=== PATIENT | female | born 1955 | race Two or more races ===

== ENCOUNTER 2016-11-16 10:33 | Inpatient (IN) | payer MEDICAID ==
[~2016-11-16] VITALS: Ht 157.5 cm; Wt 98.2 kg
[~2016-11-16 10:33] MED LIST: AMLO2.5T PO; ASP81EC PO; ATOR20TA50 PO; FURO20TA3 PO; HYDR-2595 PO; INSLANTI SC; INSLISPI SC; INSUINJ49 SC; LEVO50TA7 PO; LOS50T PO; MET50T GT; WARF5TAB PO; [UNRECOGNIZED DRUG - CODE] PO
[2016-11-16 11:17] LABS: Basophils # (auto) 0 uL; Basophils % (auto) 0.4 % (0.0-2.0); DEFINITIVE VIEW TRANSMISSION; Eosinophils # (auto) 0.1 uL; Eosinophils % (auto) 1.3 % (0.0-7.0); Hematocrit 41.5 % (36.0-46.0); Hemoglobin 12.9 g/dL (12.2-16.2); Lymphocytes # (auto) 1.8 uL; Mean Corpuscular Hemoglobin 25.4 pg (28.0-32.0); Mean Corpuscular Hgb Conc. 31.1 g/dL (32.0-36.0); Mean Corpuscular Volume 81.8 fL (80.0-100.0); Mean Platelet Volume 7.8 fL (7.4-10.4); Monocytes # (auto) 0.4 uL; Monocytes % (auto) 5.2 % (0.0-12.0); Neutrophils # (auto) 5.7 uL; Neutrophils % (auto) 71.1 % (37.0-80.0); Platelet Count (auto) 359 10^3/uL (140-450); Red Cell Distribution Width 18.2 % (11.6-16.0)
[2016-11-16 11:45] LABS: Albumin 4.2 g/dL (3.4-5.0); BUN/Creatinine Ratio 12.8; Bilirubin, Total 0.9 mg/dL (0.2-1.0); Calcium 9.3 mg/dL (8.5-10.1); Total Protein 7.8 g/dL (6.4-8.2)
[2016-11-16] MEDS ORDERED: ASPirin 81 mg TAB PO ONE (12:30)
[2016-11-16 13:09] LABS: Partial Thromboplastin Time 44.4 sec (22.64-33.71)
[2016-11-16 13:13] LABS: INR 3.56 (0.9-1.15); Prothrombin Time 36.7 sec (9.37-12.3)
[2016-11-16 13:19] LABS: B-Type Natriuretic Peptide 5.12 pg/mL (0-100)
[2016-11-16 13:22] LABS: Temperature: 22.7 C (20.0-25.0)
[2016-11-16] MEDS ORDERED: IOHEXOL 350 MG/ML 100ML IJ ONE (14:42)
[2016-11-16] MEDS: SODIUM CHLORIDE 0.9% 1,000 ML IV SCH (14:44)
[2016-11-16] MEDS ORDERED: LORazepam 0.5 MG TAB PO PRN (14:45)
[2016-11-16] MEDS ORDERED: MORPHINE SULF INJ 2 MG/ML SYRINGE 1ML IV PRN ×2 (14:45)
[2016-11-16] MEDS ORDERED: NITROGLYCERIN 0.4 MG SL TAB SL PRN (14:45)
[2016-11-16] MEDS ORDERED: LACTULOSE 20Gm/30ML SOLN PO PRN (14:45)
[2016-11-16] MEDS ORDERED: ACETAMINOPHEN 500 MG TAB PO PRN (14:45)
[2016-11-16] MEDS ORDERED: MORPHINE SULFATE 4 MG/ML SYRG IV PRN (14:45)
[2016-11-16] MEDS ORDERED: DEXTROSE (50%) 50ML SYRG IV PRN (14:45)
[2016-11-16] MEDS ORDERED: PROMETHAZINE HCL 25 MG/ML 1ML IV PRN (14:45)
[2016-11-16] MEDS ORDERED: TEMAZEPAM 15 MG CAP PO PRN (14:45)
[2016-11-16] MEDS: INSULIN DETEMIR(LEVEMIR) 1unit/0.01ml Soln (100units/ml) SC SCH (15:23)
[2016-11-16] MEDS: amLODIPine BESYLATE 5 MG TAB PO SCH ×2 (16:00→20:14)
[2016-11-16] MEDS: LOSARTAN POTASSIUM 50 MG TAB PO SCH ×2 (16:01→20:13)
[2016-11-16] MEDS: FUROSEMIDE 20 MG TAB PO SCH (16:01)
[2016-11-16] MEDS: InsuLIN REG 1unit/0.01ml Soln (100units/ml) SC SCH ×2 (17:00→21:32)
[2016-11-16 17:27] VITALS: BP 159/88
[2016-11-16] MEDS: ACCU-CHEK COMFORT CURVE STRIP VI SCH ×2 (17:28→21:33)
[2016-11-16] MEDS: METOPROLOL TARTRATE 50 MG TAB GT SCH ×2 (17:46→20:12)
[2016-11-16] MEDS ORDERED: NITROGLYCERIN 0.2MG/HR TOPICAL PATCH TD SCH (18:00)
[2016-11-16 21:56] VITALS: BP 112/66
[2016-11-16] MEDS ORDERED: ATORVASTATIN 20 MG TAB PO SCH (22:00)
[2016-11-17 01:07] LABS: Urine RBC None Seen /hpf (0 - 4)
[2016-11-17 01:27] LABS: Urine Bilirubin Negative (Negative); Urine Blood Negative /uL (Negative); Urine Color Yellow (Yellow); Urine Glucose Normal (Normal); Urine Ketone Negative (Negative); Urine Nitrite Negative (Negative); Urine Squamous Epithelial Cell FEW /hpf (<5); Urine Urobilinogen Normal (Negative)
[2016-11-17] MEDS: SODIUM CHLORIDE 0.9% 1,000 ML IV SCH (03:58)
[2016-11-17 05:00] VITALS: BP 126/77
[2016-11-17 06:22] LABS: Basophils # (auto) 0 uL; Basophils % (auto) 0.6 % (0.0-2.0); DEFINITIVE VIEW TRANSMISSION; Eosinophils # (auto) 0.2 uL; Eosinophils % (auto) 2.7 % (0.0-7.0); Hematocrit 40.2 % (36.0-46.0); Hemoglobin 12.5 g/dL (12.2-16.2); Lymphocytes # (auto) 2.4 uL; Lymphocytes % (auto) 34.1 % (10.0-50.0); Mean Corpuscular Hemoglobin 25.6 pg (28.0-32.0); Mean Corpuscular Volume 82.5 fL (80.0-100.0); Mean Platelet Volume 8.1 fL (7.4-10.4); Monocytes # (auto) 0.5 uL; Monocytes % (auto) 6.3 % (0.0-12.0); Neutrophils % (auto) 56.3 % (37.0-80.0); Platelet Count (auto) 330 10^3/uL (140-450); Red Cell Distribution Width 18.1 % (11.6-16.0); White Blood Cell 7.1 10^3/uL (4.4-10.8)
[2016-11-17] MEDS: ACCU-CHEK COMFORT CURVE STRIP VI SCH ×2 (06:26→11:54)
[2016-11-17] MEDS: InsuLIN REG 1unit/0.01ml Soln (100units/ml) SC SCH ×2 (06:26→11:30)
[2016-11-17 06:33] LABS: Partial Thromboplastin Time 43.7 sec (22.64-33.71)
[2016-11-17 06:37] LABS: INR 3.04 (0.9-1.15); Prothrombin Time 31.3 sec (9.37-12.3)
[2016-11-17 06:47] LABS: Albumin 3.9 g/dL (3.4-5.0); BUN/Creatinine Ratio 11.9; Bilirubin, Total 0.9 mg/dL (0.2-1.0); Calcium 8.8 mg/dL (8.5-10.1); Potassium 3.5 mmol/L (3.5-5.1); Total Protein 7.3 g/dL (6.4-8.2)
[2016-11-17] MEDS ORDERED: LEVOTHYROXINE SODIUM 50 MCG TAB PO SCH (07:00)
[2016-11-17 08:00] VITALS: BP 137/78
[2016-11-17 09:00] VITALS: BP 137/78
[2016-11-17] MEDS: INSULIN DETEMIR(LEVEMIR) 1unit/0.01ml Soln (100units/ml) SC SCH (10:00)
[2016-11-17] MEDS ORDERED: INSULIN GLARGINE SC SCH (10:00)
[2016-11-17] MEDS ORDERED: ASPirin 81 mg TAB PO SCH (10:00)
[2016-11-17] MEDS: LOSARTAN POTASSIUM 50 MG TAB PO SCH (10:49)
[2016-11-17] MEDS: METOPROLOL TARTRATE 50 MG TAB GT SCH (10:50)
[2016-11-17] MEDS: FUROSEMIDE 20 MG TAB PO SCH (10:50)
[2016-11-17] MEDS: amLODIPine BESYLATE 5 MG TAB PO SCH (10:51)
[2016-11-17 12:41] VITALS: BP 101/51
== END 2016-11-17 16:00 | disposition home or self-care (01) | DRG 198 ==
LOC: ER 10:33 → TELE 10:34 → TELE-CENTR 17:21
PROVIDERS: ADMIT Internal Medicine; ATTEND Internal Medicine
DX: R07.9 Chest pain, unspecified (principal); I25.2 Old myocardial infarction; I25.110 Atherosclerotic heart disease of native coronary artery with unstable angina pectoris; D68.9 Coagulation defect, unspecified; I50.9 Heart failure, unspecified; I11.0 Hypertensive heart disease with heart failure; E11.65 Type 2 diabetes mellitus with hyperglycemia; N13.30 Unspecified hydronephrosis; Z96.641 Presence of right artificial hip joint; E66.01 Morbid (severe) obesity due to excess calories; E03.9 Hypothyroidism, unspecified; E78.5 Hyperlipidemia, unspecified; I48.0 Paroxysmal atrial fibrillation; R50.9 Fever, unspecified; I48.2 Chronic atrial fibrillation; J45.909 Unspecified asthma, uncomplicated; Z79.01 Long term (current) use of anticoagulants; Z79.4 Long term (current) use of insulin; Z82.49 Family history of ischemic heart disease and other diseases of the circulatory system; Z83.3 Family history of diabetes mellitus; Z95.5 Presence of coronary angioplasty implant and graft; Z90.49 Acquired absence of other specified parts of digestive tract; Z98.51 Tubal ligation status; Z90.710 Acquired absence of both cervix and uterus; Z98.890 Other specified postprocedural states; Z90.89 Acquired absence of other organs; Z80.9 Family history of malignant neoplasm, unspecified; Z88.5 Allergy status to narcotic agent; Z88.8 Allergy status to other drugs, medicaments and biological substances; Z88.1 Allergy status to other antibiotic agents; Z91.040 Latex allergy status; Z83.2 Family history of diseases of the blood and blood-forming organs and certain disorders involving the immune mechanism; Z68.39 Body mass index [BMI] 39.0-39.9, adult
CPT/HCPCS: 36415; 71020; 71260; 74177; 80053; 80061; 81001; 82550; 82962; 83036; 83735; 83880; 84443; 84484; 85025; 85379; 85610; 85652; 85730; 86141; 87086; 93005; G0434; J1815

== ENCOUNTER 2019-04-08 11:58 | Emergency (ER) | payer OTHER, MEDICAID ==
[~2019-04-08] VITALS: Ht 167.6 cm; Wt 74.8 kg
[~2019-04-08 11:58] MED LIST changes: -AMLO2.5T PO; +AMLO2.5T7 PO; -ASP81EC PO; -HYDR-2595 PO; -INSUINJ49 SC; +[UNRECOGNIZED DRUG - CODE] PO; -[UNRECOGNIZED DRUG - CODE] PO
[2019-04-08 12:54] VITALS: BP 146/86
[2019-04-08] MEDS ORDERED: TETANUS-DIPTH-ACEL PERTUSSIS 0.5ML SYRG IM ONE (13:30)
[2019-04-08] MEDS ORDERED: ACETAMINOPHEN 500 MG TAB PO ONE (13:30)
== END 2019-04-08 13:49 | disposition home or self-care (01) ==
LOC: EDBD 11:58 → ER 12:10
DX: S70.12XA Contusion of left thigh, initial encounter (principal); I11.0 Hypertensive heart disease with heart failure; I50.9 Heart failure, unspecified; E11.9 Type 2 diabetes mellitus without complications; J45.909 Unspecified asthma, uncomplicated; I48.91 Unspecified atrial fibrillation; E78.5 Hyperlipidemia, unspecified; Z90.49 Acquired absence of other specified parts of digestive tract; Z98.51 Tubal ligation status; Z90.89 Acquired absence of other organs; Z91.040 Latex allergy status; Z98.61 Coronary angioplasty status; W54.0XXA Bitten by dog, initial encounter; Y93.89 Activity, other specified; Y99.8 Other external cause status; Y92.89 Other specified places as the place of occurrence of the external cause; Z88.1 Allergy status to other antibiotic agents; Z88.6 Allergy status to analgesic agent
CPT/HCPCS: 90471; 90715

== ENCOUNTER 2019-04-21 16:50 | Emergency (ER) | payer OTHER, MEDICAID ==
[~2019-04-21] VITALS: Ht 160 cm; Wt 77.1 kg
[2019-04-21 18:15] LABS: Basophils # (auto) 0 uL; Basophils % (auto) 0.7 % (0.0-2.0); Eosinophils # (auto) 0.2 uL; Eosinophils % (auto) 3.1 % (0.0-7.0); Hematocrit 38.5 % (36.0-46.0); Hemoglobin 12.5 g/dL (12.2-16.2); Lymphocytes # (auto) 2.2 uL; Lymphocytes % (auto) 31.2 % (10.0-50.0); Mean Corpuscular Hemoglobin 26.5 pg (28.0-32.0); Mean Corpuscular Hgb Conc. 32.4 g/dL (32.0-36.0); Mean Corpuscular Volume 81.6 fL (80.0-100.0); Monocytes # (auto) 0.4 uL; Monocytes % (auto) 6.3 % (0.0-12.0); Neutrophils # (auto) 4.1 uL; Neutrophils % (auto) 58.7 % (37.0-80.0); Platelet Count (auto) 425 10^3/uL (140-450); Red Blood Cells 4.72 10^6/uL (4.0-5.20); Red Cell Distribution Width 16.5 % (11.8-14.3); White Blood Cell 7.1 10^3/uL (4.4-10.8)
[2019-04-21 18:31] LABS: Albumin 3.9 g/dL (3.4-5.0); BUN/Creatinine Ratio 21.7; Calcium 8.8 mg/dL (8.5-10.1); Potassium 3.5 mmol/L (3.5-5.1)
[2019-04-21 18:35] LABS: Bilirubin, Total 0.5 mg/dL (0.2-1.0); Total Protein 7.4 g/dL (6.4-8.2)
[2019-04-21 18:56] LABS: INR 1.53 (0.9-1.15); Partial Thromboplastin Time 36.1 sec (23.64-32.05)
[2019-04-21] MEDS ORDERED: LIDOCAINE 2%HCL (LOCAL ANESTH.) INJ 10ml MDV IJ ONE (21:30)
[2019-04-21] MEDS ORDERED: CLINDAMYCIN 900MG IV 50 ML IV ONE (21:45)
[2019-04-21] MEDS ORDERED: LIDOCAINE 2%HCL (LOCAL ANESTH.) INJ 20ML MDV ONE (23:34)
[2019-04-22 00:30] VITALS: BP 143/75
[2019-04-22] MEDS ORDERED: SULFAMETHOX W/TRIMETH(800/160MG) DS TAB PO ONE (00:30)
[2019-04-22] MEDS ORDERED: HYDROcodone-ACET 10/325MG TAB PO ONE (00:30)
== END 2019-04-22 02:01 | disposition home or self-care (01) ==
LOC: ER 16:56
DX: S71.152A Open bite, left thigh, initial encounter (principal); L02.416 Cutaneous abscess of left lower limb; L08.9 Local infection of the skin and subcutaneous tissue, unspecified; I11.0 Hypertensive heart disease with heart failure; I50.9 Heart failure, unspecified; E11.9 Type 2 diabetes mellitus without complications; J45.909 Unspecified asthma, uncomplicated; Z86.39 Personal history of other endocrine, nutritional and metabolic disease; Z90.49 Acquired absence of other specified parts of digestive tract; Z90.710 Acquired absence of both cervix and uterus; Z98.51 Tubal ligation status; Z98.61 Coronary angioplasty status; Z88.2 Allergy status to sulfonamides; Z91.040 Latex allergy status
CPT/HCPCS: 10060; 36415; 73552; 80053; 83605; 85025; 85610; 85730; 87040; 87077; 87186; 87205; 99284; J2001; J3490

== ENCOUNTER 2021-05-23 12:56 | Inpatient (IN) | payer MEDICAID, OTHER ==
[~2021-05-23] VITALS: Ht 160 cm; Wt 77.1 kg
[~2021-05-23 12:56] MED LIST changes: +AMLO-483 PO; -AMLO2.5T7 PO
[2021-05-23 13:32] LABS: Basophils # (auto) 0.1 10 ^3/uL (0-0.2); Basophils % (auto) 0.9 % (0.0-2.0); Eosinophils # (auto) 0.2 10 ^3/uL (0-0.8); Eosinophils % (auto) 2.8 % (0.0-7.0); Hematocrit 38.9 % (36.0-46.0); Hemoglobin 12.9 g/dL (12.2-16.2); Lymphocytes # (auto) 2.8 10 ^3/uL (0.4-5.4); Lymphocytes % (auto) 36.1 % (10.0-50.0); Mean Corpuscular Hemoglobin 27.9 pg (28.0-32.0); Mean Corpuscular Hgb Conc. 33.2 g/dL (32.0-36.0); Mean Corpuscular Volume 84.2 fL (80.0-100.0); Monocytes # (auto) 0.4 10 ^3/uL (0-1.3); Monocytes % (auto) 5.6 % (0.0-12.0); Neutrophils # (auto) 4.2 10 ^3/uL (1.6-8.6); Neutrophils % (auto) 54.6 % (37.0-80.0); Red Blood Cells 4.62 10^6/uL (4.0-5.20); Red Cell Distribution Width 15.7 % (11.8-14.3); White Blood Cell 7.7 10^3/uL (4.4-10.8)
[2021-05-23 13:53] LABS: Albumin 4.1 g/dL (3.4-5.0); Anion Gap 4 (5-15); Blood Urea Nitrogen 16 mg/dL (7-18); Calcium 8.5 mg/dL (8.5-10.1); Carbon Dioxide 25 mmol/L (21-32); Chloride 112 mmol/L (98-107); Glucose 84 mg/dL (74-106); Potassium 3.9 mmol/L (3.5-5.1); Sodium 141 mmol/L (136-145)
[2021-05-23 14:02] LABS: Alanine Aminotransferase 25 U/L (13-56); Alkaline Phosphatase 125 U/L (45-117); Aspartate Aminotransferase 20 U/L (15-37); BUN/Creatinine Ratio 21.6; Bilirubin, Total 0.4 mg/dL (0.2-1.0); GFR African American 101 mL/min; GFR Non-African American 83 mL/min; Total Protein 7.9 g/dL (6.4-8.2)
[2021-05-23] MEDS ORDERED: ASPirin 81 mg TAB PO ONE (14:45)
[2021-05-23 15:33] LABS: INR 2.57 (0.9-1.15); Partial Thromboplastin Time 47.3 sec (23.6-33.0)
[2021-05-23] MEDS ORDERED: NITROGLYCERIN 0.4 MG SL TAB SL PRN (20:00)
[2021-05-23] MEDS ORDERED: ACETAMINOPHEN 500 MG TAB PO PRN (20:00)
[2021-05-23] MEDS ORDERED: DOCUSATE CALCIUM 240 MG CAP PO PRN (20:00)
[2021-05-23] MEDS ORDERED: MORPHINE SULFATE INJECTION 2 MG/2 ML SYRG IV PRN (20:00)
[2021-05-23] MEDS ORDERED: hydrALAZINE HCL 20 MG/ML VL IV PRN (20:00)
[2021-05-23] MEDS ORDERED: DEXTROSE (50%) 50ML SYRG IV PRN (20:15)
[2021-05-24] MEDS: InsuLIN REG 1unit/0.01ml Soln (100units/ml) SC SCH ×6 (04:00→20:00)
[2021-05-24] MEDS: ACCU-CHEK COMFORT CURVE STRIP VI SCH ×6 (04:20→20:00)
[2021-05-24] MEDS: MORPHINE SULFATE INJECTION 2 MG/2 ML SYRG IV PRN (04:51)
[2021-05-24] MEDS: ONDANSETRON HCL 4 MG/2 ML VIAL IV PRN (04:51)
[2021-05-24 05:11] LABS: Urine Bacteria NONE SEEN /hpf (None Seen); Urine Blood Negative /uL (Negative); Urine Hyaline Cast FEW /lpf (0 - 2); Urine Mucus FEW (None Seen); Urine WBC 1 /hpf (0 - 5)
[2021-05-24 05:13] LABS: Basophils # (auto) 0.1 10 ^3/uL (0-0.2); Basophils % (auto) 1.4 % (0.0-2.0); Eosinophils # (auto) 0.3 10 ^3/uL (0-0.8); Hematocrit 39.6 % (36.0-46.0); Hemoglobin 13.3 g/dL (12.2-16.2); Lymphocytes # (auto) 2.9 10 ^3/uL (0.4-5.4); Lymphocytes % (auto) 35.6 % (10.0-50.0); Mean Corpuscular Hemoglobin 28.2 pg (28.0-32.0); Mean Corpuscular Hgb Conc. 33.5 g/dL (32.0-36.0); Mean Corpuscular Volume 84.4 fL (80.0-100.0); Monocytes # (auto) 0.6 10 ^3/uL (0-1.3); Monocytes % (auto) 7.2 % (0.0-12.0); Neutrophils # (auto) 4.4 10 ^3/uL (1.6-8.6); Neutrophils % (auto) 52.8 % (37.0-80.0); Red Cell Distribution Width 15.8 % (11.8-14.3); White Blood Cell 8.3 10^3/uL (4.4-10.8)
[2021-05-24 05:31] LABS: Alanine Aminotransferase 25 U/L (13-56); Albumin 4.2 g/dL (3.4-5.0); Anion Gap 7 (5-15); Blood Urea Nitrogen 23 mg/dL (7-18); Calcium 8.6 mg/dL (8.5-10.1); Carbon Dioxide 23 mmol/L (21-32); Chloride 111 mmol/L (98-107); Glucose 104 mg/dL (74-106); Potassium 3.5 mmol/L (3.5-5.1); Sodium 141 mmol/L (136-145)
[2021-05-24 05:36] LABS: Alkaline Phosphatase 123 U/L (45-117); Aspartate Aminotransferase 19 U/L (15-37); BUN/Creatinine Ratio 32.9; Bilirubin, Total 0.4 mg/dL (0.2-1.0); GFR African American 107 mL/min; GFR Non-African American 89 mL/min; Total Protein 8.1 g/dL (6.4-8.2)
[2021-05-24] MEDS ORDERED: PANTOPRAZOLE 40 MG TAB PO SCH (10:00)
[2021-05-24] MEDS ORDERED: ATORVASTATIN 20 MG TAB PO SCH (22:00)
[2021-05-25] MEDS: ACCU-CHEK COMFORT CURVE STRIP VI SCH ×3 (01:24→08:00)
[2021-05-25] MEDS: ONDANSETRON HCL 4 MG/2 ML VIAL IV PRN (02:54)
[2021-05-25] MEDS: MORPHINE SULFATE INJECTION 2 MG/2 ML SYRG IV PRN (02:54)
[2021-05-25] MEDS: InsuLIN REG 1unit/0.01ml Soln (100units/ml) SC SCH ×3 (07:16→08:00)
[2021-05-25 08:18] VITALS: BP 134/71
[2021-05-25 08:29] LABS: Basophils # (auto) 0.1 10 ^3/uL (0-0.2); Basophils % (auto) 1.2 % (0.0-2.0); Eosinophils # (auto) 0.2 10 ^3/uL (0-0.8); Eosinophils % (auto) 3.5 % (0.0-7.0); Hematocrit 36.5 % (36.0-46.0); Lymphocytes # (auto) 2.5 10 ^3/uL (0.4-5.4); Lymphocytes % (auto) 40.2 % (10.0-50.0); Mean Corpuscular Hemoglobin 28.1 pg (28.0-32.0); Mean Corpuscular Hgb Conc. 32.9 g/dL (32.0-36.0); Mean Corpuscular Volume 85.4 fL (80.0-100.0); Monocytes # (auto) 0.4 10 ^3/uL (0-1.3); Monocytes % (auto) 6.8 % (0.0-12.0); Neutrophils # (auto) 3.1 10 ^3/uL (1.6-8.6); Neutrophils % (auto) 48.3 % (37.0-80.0); Nucleated Red Blood Cells % 0.1 %; Red Blood Cells 4.28 10^6/uL (4.0-5.20); White Blood Cell 6.3 10^3/uL (4.4-10.8)
[2021-05-25 08:53] LABS: BUN/Creatinine Ratio 33.3; Calcium 8.1 mg/dL (8.5-10.1); Potassium 3.8 mmol/L (3.5-5.1)
== END 2021-05-25 14:27 | disposition home or self-care (01) | DRG 313 ==
LOC: ER 12:56 → TELE 19:49
PROVIDERS: ADMIT Family Medicine; ATTEND Internal Medicine
DX: R07.89 Other chest pain (principal); E03.9 Hypothyroidism, unspecified; I48.91 Unspecified atrial fibrillation; E11.9 Type 2 diabetes mellitus without complications; E66.01 Morbid (severe) obesity due to excess calories; I25.10 Atherosclerotic heart disease of native coronary artery without angina pectoris; Z20.822 Contact with and (suspected) exposure to COVID-19; E78.5 Hyperlipidemia, unspecified; I11.0 Hypertensive heart disease with heart failure; I50.9 Heart failure, unspecified; J45.909 Unspecified asthma, uncomplicated; Z79.01 Long term (current) use of anticoagulants; Z79.4 Long term (current) use of insulin; Z82.49 Family history of ischemic heart disease and other diseases of the circulatory system; I25.2 Old myocardial infarction; Z88.8 Allergy status to other drugs, medicaments and biological substances; Z68.30 Body mass index [BMI] 30.0-30.9, adult; Z83.3 Family history of diabetes mellitus; Z90.710 Acquired absence of both cervix and uterus; Z98.61 Coronary angioplasty status; Z90.49 Acquired absence of other specified parts of digestive tract
CPT/HCPCS: 36415; 71045; 71046; 80048; 80053; 81001; 82962; 83036; 83735; 83880; 84443; 84484; 85025; 85379; 85610; 85730; 87426; 93005; 93306; 93971; G0378; J2405

== ENCOUNTER 2022-11-12 13:01 | Emergency (ER) | payer OTHER ==
[~2022-11-12] VITALS: Ht 160 cm; Wt 80.0 kg
[2022-11-12] MEDS ORDERED: traMADol HCL 50 MG TAB PO ONE (16:15)
[2022-11-12 16:26] LABS: Urine Bacteria NONE SEEN /hpf (None Seen); Urine Blood Negative /uL (Negative); Urine Mucus FEW (None Seen); Urine Specific Gravity 1.023 (1.001-1.035); Urine WBC 5 /hpf (0 - 5)
[2022-11-12 16:44] VITALS: BP 141/80
== END 2022-11-12 18:43 | disposition home or self-care (01) ==
LOC: ER 13:01
DX: S92.255A Nondisplaced fracture of navicular [scaphoid] of left foot, initial encounter for closed fracture (principal); S92.811A Other fracture of right foot, initial encounter for closed fracture; S80.02XA Contusion of left knee, initial encounter; S80.01XA Contusion of right knee, initial encounter; I11.0 Hypertensive heart disease with heart failure; I50.9 Heart failure, unspecified; E11.9 Type 2 diabetes mellitus without complications; E78.5 Hyperlipidemia, unspecified; Z90.49 Acquired absence of other specified parts of digestive tract; Z98.51 Tubal ligation status; Z90.710 Acquired absence of both cervix and uterus; W18.39XA Other fall on same level, initial encounter; Y93.89 Activity, other specified; Y92.89 Other specified places as the place of occurrence of the external cause; Y99.8 Other external cause status
CPT/HCPCS: 36415; 73562; 73620; 81001; 82962; 93005

== ENCOUNTER 2023-11-03 01:52 | Emergency (ER) | payer OTHER ==
[~2023-11-03] VITALS: Ht 165.1 cm; Wt 81.8 kg
[~2023-11-03 01:52] MED LIST changes: -AMLO-483 PO; +AMLO1TAB21 PO
[2023-11-03 02:35] LABS: Alanine Aminotransferase 22 U/L (7-40); Albumin 4.1 g/dL (3.2-4.8); Alkaline Phosphatase 120 U/L (46-116); Anion Gap 5 (5-15); Aspartate Aminotransferase 23 U/L (13-40); BUN/Creatinine Ratio 15.8 (10.0-20.0); Blood Urea Nitrogen 12 mg/dL (9-23); Calcium 8.8 mg/dL (8.7-10.4); Carbon Dioxide 27 mmol/L (20-30); Chloride 104 mmol/L (98-107); Glucose 221 mg/dL (74-106); Potassium 3.5 mmol/L (3.5-5.1); Sodium 136 mmol/L (136-145)
[2023-11-03 02:36] LABS: Bilirubin, Total 0.4 mg/dL (0.2-1.0); Total Protein 6.5 g/dL (5.7-8.2)
[2023-11-03 02:38] LABS: Monocytes # (auto) 0.4 10 ^3/uL (0-1.3); White Blood Cell 9.1 10^3/uL (4.4-10.8)
[2023-11-03 02:40] LABS: Basophils # (auto) 0.1 10 ^3/uL (0-0.2); Basophils % (auto) 0.7 % (0.0-2.0); Eosinophils # (auto) 0.3 10 ^3/uL (0-0.8); Eosinophils % (auto) 2.8 % (0.0-7.0); Hemoglobin 10.1 g/dL (12.2-16.2); Lymphocytes # (auto) 1.6 10 ^3/uL (0.4-5.4); Lymphocytes % (auto) 17.6 % (10.0-50.0); Mean Corpuscular Hgb Conc. 31.7 g/dL (32.0-36.0); Monocytes % (auto) 4.6 % (0.0-12.0); Neutrophils # (auto) 6.8 10 ^3/uL (1.6-8.6); Neutrophils % (auto) 74.3 % (37.0-80.0); Red Blood Cells 4.05 10^6/uL (4.0-5.20); Red Cell Distribution Width 17.9 % (11.8-14.3)
[2023-11-03 02:54] LABS: INR 2.06 (0.9-1.15); Prothrombin Time 20.6 sec (9.3-11.8)
[2023-11-03 03:29] VITALS: BP 156/82; PULSE 81; RESP 17; TEMP 97.9; O2SAT 95
== END 2023-11-03 03:31 | disposition home or self-care (01) ==
LOC: EDBD 01:52 → ER 01:52
DX: R07.89 Other chest pain (principal); I11.0 Hypertensive heart disease with heart failure; I50.9 Heart failure, unspecified; I25.10 Atherosclerotic heart disease of native coronary artery without angina pectoris; I25.2 Old myocardial infarction; E11.9 Type 2 diabetes mellitus without complications; E78.5 Hyperlipidemia, unspecified; E03.9 Hypothyroidism, unspecified; I48.91 Unspecified atrial fibrillation; J45.909 Unspecified asthma, uncomplicated; Z90.49 Acquired absence of other specified parts of digestive tract; Z90.710 Acquired absence of both cervix and uterus; Z90.89 Acquired absence of other organs; Z79.4 Long term (current) use of insulin; Z79.01 Long term (current) use of anticoagulants; Z79.899 Other long term (current) drug therapy; Z88.8 Allergy status to other drugs, medicaments and biological substances; Z88.1 Allergy status to other antibiotic agents; Z91.040 Latex allergy status
CPT/HCPCS: 36415; 71045; 80053; 83880; 84484; 85025; 85610; 85730; 93005

== ENCOUNTER 2023-11-05 14:36 | Inpatient (IN) | payer OTHER ==
[~2023-11-05] VITALS: Ht 160 cm; Wt 80.4 kg
[2023-11-05 15:57] LABS: Basophils # (auto) 0.1 10 ^3/uL (0-0.2); Basophils % (auto) 1.2 % (0.0-2.0); Eosinophils # (auto) 0.3 10 ^3/uL (0-0.8); Eosinophils % (auto) 3.3 % (0.0-7.0); Hematocrit 34.4 % (36.0-46.0); Hemoglobin 10.7 g/dL (12.2-16.2); Lymphocytes # (auto) 1.9 10 ^3/uL (0.4-5.4); Lymphocytes % (auto) 25.3 % (10.0-50.0); Mean Corpuscular Hemoglobin 24.9 pg (28.0-32.0); Mean Corpuscular Volume 80.3 fL (80.0-100.0); Monocytes # (auto) 0.6 10 ^3/uL (0-1.3); Monocytes % (auto) 7.8 % (0.0-12.0); Neutrophils # (auto) 4.8 10 ^3/uL (1.6-8.6); Neutrophils % (auto) 62.4 % (37.0-80.0); Nucleated Red Blood Cells % 0.1 %; Red Blood Cells 4.29 10^6/uL (4.0-5.20); Red Cell Distribution Width 18.2 % (11.8-14.3); White Blood Cell 7.6 10^3/uL (4.4-10.8)
[2023-11-05 16:13] LABS: Alanine Aminotransferase 20 U/L (7-40); Alkaline Phosphatase 105 U/L (46-116); Anion Gap 8 (5-15); Aspartate Aminotransferase 16 U/L (13-40); BUN/Creatinine Ratio 19.5 (10.0-20.0); Blood Urea Nitrogen 17 mg/dL (9-23); Calcium 8.7 mg/dL (8.7-10.4); Carbon Dioxide 23 mmol/L (20-30); Chloride 107 mmol/L (98-107); Glucose 194 mg/dL (74-106); INR 2.55 (0.9-1.15); Magnesium 1.7 mg/dL (1.6-2.6); Partial Thromboplastin Time 48.3 SEC (24.5-34.5); Potassium 3.5 mmol/L (3.5-5.1); Prothrombin Time 25.2 sec (9.3-11.8); Sodium 138 mmol/L (136-145)
[2023-11-05 16:14] LABS: Albumin 4.2 g/dL (3.2-4.8); Bilirubin, Total 0.4 mg/dL (0.2-1.0); Total Protein 6.4 g/dL (5.7-8.2)
[2023-11-05] MEDS ORDERED: ONDANSETRON HCL 4 MG/2 ML VIAL IV PRN (19:30)
[2023-11-05] MEDS ORDERED: DEXTROSE (50%) 50ML SYRG IV PRN (19:30)
[2023-11-05] MEDS ORDERED: NITROGLYCERIN 0.4 MG SL TAB SL PRN (20:00)
[2023-11-05] MEDS: InsuLIN REG 1unit/0.01ml Soln (100units/ml) SC SCH (22:00)
[2023-11-05] MEDS: ACCU-CHEK COMFORT CURVE STRIP VI SCH (22:00)
[2023-11-05] MEDS: ATORVASTATIN 20 MG TAB PO SCH (22:26)
[2023-11-05 23:10] VITALS: PULSE 70; RESP 12; O2SAT 98
[2023-11-06] VITALS (11 sets, daily range): BP systolic 114–172; BP diastolic 69–88; PULSE 68–147; RESP 18–20; TEMP 37.2; O2SAT 94–98
[2023-11-06] MEDS ORDERED: DULO60CA41 PO (00:45)
[2023-11-06] MEDS: amLODIPine BESYLATE 5 MG TAB PO SCH (06:17)
[2023-11-06 06:50] LABS: Basophils # (auto) 0.1 10 ^3/uL (0-0.2); Eosinophils # (auto) 0.4 10 ^3/uL (0-0.8); Hemoglobin 9.9 g/dL (12.2-16.2); Monocytes # (auto) 0.6 10 ^3/uL (0-1.3); Neutrophils # (auto) 3.8 10 ^3/uL (1.6-8.6); White Blood Cell 6.6 10^3/uL (4.4-10.8)
[2023-11-06 06:52] LABS: Basophils % (auto) 1.1 % (0.0-2.0); Eosinophils % (auto) 6.3 % (0.0-7.0); Hematocrit 31.4 % (36.0-46.0); Lymphocytes # (auto) 1.6 10 ^3/uL (0.4-5.4); Lymphocytes % (auto) 24.8 % (10.0-50.0); Mean Corpuscular Hgb Conc. 31.7 g/dL (32.0-36.0); Mean Corpuscular Volume 79.1 fL (80.0-100.0); Monocytes % (auto) 9.3 % (0.0-12.0); Neutrophils % (auto) 58.5 % (37.0-80.0); Nucleated Red Blood Cells % 0.2 %; Red Blood Cells 3.97 10^6/uL (4.0-5.20); Red Cell Distribution Width 18.3 % (11.8-14.3)
[2023-11-06 06:55] LABS: Anion Gap 7 (5-15); Carbon Dioxide 26 mmol/L (20-30); Chloride 107 mmol/L (98-107); Potassium 3.4 mmol/L (3.5-5.1); Sodium 140 mmol/L (136-145)
[2023-11-06 06:56] LABS: Calcium 9.2 mg/dL (8.5-10.1)
[2023-11-06 07:00] LABS: Glucose 221 mg/dL (74-106); Triglycerides 135 mg/dL (< 150)
[2023-11-06 07:01] LABS: BUN/Creatinine Ratio 13.4 (10.0-20.0); Blood Urea Nitrogen 11 mg/dL (9-23); LDL Cholesterol 76 mg/dL (< 100)
[2023-11-06 07:02] LABS: Cholesterol 133 mg/dL (< 200); HDL Cholesterol 42 mg/dL (40-59)
[2023-11-06] MEDS: ENOXAPARIN SOD 40 MG/0.4 ML SYRINGE SC SCH (09:27)
[2023-11-06] MEDS: ASPirin 81 mg TAB PO SCH (09:27)
[2023-11-06] MEDS: PANTOPRAZOLE 40 MG/10 ML VIAL INJ IV SCH (09:27)
[2023-11-06] MEDS: METOPROLOL TARTRATE 1MG/1ML-5ML VIAL IV ONE (18:55)
[2023-11-06] MEDS: METOPROLOL TARTRATE 50 MG TAB PO SCH (21:36)
[2023-11-07] VITALS (11 sets, daily range): BP systolic 121–175; BP diastolic 58–88; PULSE 61–75; RESP 18–20; TEMP 36.9; O2SAT 95–100
[2023-11-07 00:22] LABS: Urine Bacteria NONE SEEN /hpf (None Seen); Urine Blood 1+ /uL (Negative); Urine Budding Yeast OCCASIONAL /hpf (None Seen); Urine Clarity CLOUDY (Clear); Urine Color Yellow (Yellow); Urine Mucus FEW (None Seen); Urine Protein, UAD 2+ (Negative); Urine Specific Gravity 1.022 (1.001-1.035); Urine Urobilinogen Normal (Negative); Urine WBC 2082 /hpf (0 - 5); Urine pH 6.5 (5.0-8.0)
[2023-11-07 00:28] LABS: Amphetamine Screen, Urine Neg (NEGATIVE); Barbiturate Scree,Urine Neg (NEGATIVE); Benzodiazephine Screen, Urine Neg (NEGATIVE); Cannabinoid Screen, Urine Neg (NEGATIVE); Cocaine Screen, Urine Neg (NEGATIVE); Opiate Scree,Urine Neg (NEGATIVE); Phencyclidine Screen, Urine Neg (NEGATIVE)
[2023-11-07] MEDS: ACETAMINOPHEN 325 MG TAB PO PRN (02:00)
[2023-11-07] MEDS: HYDROcodone-ACET 10/325MG TAB PO PRN (14:12)
[2023-11-08] VITALS (9 sets, daily range): BP systolic 124–167; BP diastolic 63–85; PULSE 51–97; RESP 18; TEMP 36.8; O2SAT 93–98
[2023-11-09 04:00] VITALS: PULSE 61
[2023-11-09 05:00] VITALS: BP 148/79; PULSE 55; RESP 17; TEMP 97.7; O2SAT 97
[2023-11-09 07:30] VITALS: BP 131/75; PULSE 61; PULSE 68; RESP 18; TEMP 98.5; O2SAT 98
[2023-11-09] MEDS: hydrALAZINE HCL 20 MG/ML VL IV PRN (08:59)
[2023-11-09 09:00] VITALS: BP 167/65; PULSE 60; RESP 18; TEMP 98; O2SAT 96
[2023-11-09 13:00] VITALS: BP 118/73; PULSE 64; RESP 18; TEMP 98.1; O2SAT 93
== END 2023-11-09 16:25 | disposition home or self-care (01) | DRG 309 ==
LOC: ER 14:36 → TELE-EAST 19:58 → TELE 19:58 → TELE-EAST 23:53
PROVIDERS: ADMIT Nurse Practitioner Family; ATTEND Internal Medicine
DX: I47.10 Supraventricular tachycardia, unspecified (principal); D68.9 Coagulation defect, unspecified; I48.91 Unspecified atrial fibrillation; I11.0 Hypertensive heart disease with heart failure; E11.9 Type 2 diabetes mellitus without complications; I50.9 Heart failure, unspecified; E78.5 Hyperlipidemia, unspecified; E66.9 Obesity, unspecified; Z88.8 Allergy status to other drugs, medicaments and biological substances; Z88.1 Allergy status to other antibiotic agents; Z91.040 Latex allergy status; Z79.891 Long term (current) use of opiate analgesic; Z79.899 Other long term (current) drug therapy; Z79.4 Long term (current) use of insulin; Z83.3 Family history of diabetes mellitus; Z82.49 Family history of ischemic heart disease and other diseases of the circulatory system; Z68.31 Body mass index [BMI] 31.0-31.9, adult; Z79.01 Long term (current) use of anticoagulants; Z79.84 Long term (current) use of oral hypoglycemic drugs; Z82.3 Family history of stroke; Z90.710 Acquired absence of both cervix and uterus
CPT/HCPCS: 36415; 70450; 70551; 71045; 80048; 80053; 80061; 80307; 81001; 82962; 83036; 83735; 83880; 84436; 84443; 84484; 85025; 85610; 85730; 93005; 93306; C9113; G0378; J1815

== ENCOUNTER 2024-01-21 14:58 | Emergency (ER) | payer OTHER ==
[~2024-01-21] VITALS: Ht 160 cm; Wt 80.9 kg
[~2024-01-21 14:58] MED LIST changes: +AUG875T PO; +DULO60CA41 PO
[2024-01-21 15:24] VITALS: BP 151/88; RESP 18; O2SAT 98
[2024-01-21] MEDS ORDERED: HYDROcodone-ACET 10/325MG TAB PO ONE (15:30)
[2024-01-21 16:40] LABS: Basophils # (auto) 0.1 10 ^3/uL (0-0.2); Eosinophils # (auto) 0.2 10 ^3/uL (0-0.8); Lymphocytes # (auto) 1.7 10 ^3/uL (0.4-5.4); Neutrophils # (auto) 3.8 10 ^3/uL (1.6-8.6); Nucleated Red Blood Cells % 0.1 %; White Blood Cell 6.1 10^3/uL (4.4-10.8)
[2024-01-21 16:42] LABS: Basophils % (auto) 0.9 % (0.0-2.0); Hematocrit 35.2 % (36.0-46.0); Hemoglobin 11.2 g/dL (12.2-16.2); Lymphocytes % (auto) 28.1 % (10.0-50.0); Mean Corpuscular Hemoglobin 25.8 pg (28.0-32.0); Mean Corpuscular Hgb Conc. 31.8 g/dL (32.0-36.0); Mean Corpuscular Volume 81.1 fL (80.0-100.0); Monocytes # (auto) 0.3 10 ^3/uL (0-1.3); Monocytes % (auto) 5.7 % (0.0-12.0); Neutrophils % (auto) 62.3 % (37.0-80.0); Red Blood Cells 4.34 10^6/uL (4.0-5.20); Red Cell Distribution Width 19.8 % (11.8-14.3)
[2024-01-21 16:48] LABS: Chloride 108 mmol/L (98-107); Sodium 139 mmol/L (136-145)
[2024-01-21 16:49] LABS: Anion Gap 7 (5-15); Calcium 9.3 mg/dL (8.7-10.4); Carbon Dioxide 24 mmol/L (20-30)
[2024-01-21 16:54] LABS: BUN/Creatinine Ratio 21.6 (10.0-20.0); Blood Urea Nitrogen 16 mg/dL (9-23); Glucose 180 mg/dL (74-106)
[2024-01-21 16:57] VITALS: PULSE 71
[2024-01-21] MEDS ORDERED: ACET500T58 PO (18:10)
== END 2024-01-22 00:29 | disposition home or self-care (01) ==
LOC: ER 14:58
DX: R51.9 Headache, unspecified (principal); H57.12 Ocular pain, left eye; I11.0 Hypertensive heart disease with heart failure; I50.9 Heart failure, unspecified; I25.2 Old myocardial infarction; I25.10 Atherosclerotic heart disease of native coronary artery without angina pectoris; I48.91 Unspecified atrial fibrillation; E03.9 Hypothyroidism, unspecified; E11.9 Type 2 diabetes mellitus without complications; J45.909 Unspecified asthma, uncomplicated; E78.5 Hyperlipidemia, unspecified; Z90.49 Acquired absence of other specified parts of digestive tract; Z90.710 Acquired absence of both cervix and uterus; Z90.89 Acquired absence of other organs; Z79.4 Long term (current) use of insulin; Z79.01 Long term (current) use of anticoagulants; Z79.899 Other long term (current) drug therapy; Z88.1 Allergy status to other antibiotic agents; Z88.8 Allergy status to other drugs, medicaments and biological substances; Z91.040 Latex allergy status
CPT/HCPCS: 36415; 70480; 80048; 84484; 85025; 93005

== ENCOUNTER 2024-04-15 16:35 | Emergency (ER) | payer OTHER ==
[~2024-04-15] VITALS: Ht 160 cm; Wt 85.0 kg
[~2024-04-15 16:35] MED LIST changes: +ACET500T58 PO
[2024-04-15] MEDS: KETOROLAC TROMETH 60MG/2ML VIAL IM ONE (18:05)
[2024-04-15 18:20] LABS: Urine Amorphous Crystal FEW /hpf (None Seen); Urine Bacteria FEW /hpf (None Seen); Urine Blood TRACE /uL (Negative); Urine Clarity Turbid (Clear); Urine Color Colorless (Yellow); Urine Protein, UAD TRACE (Negative); Urine Urobilinogen Normal (Negative); Urine WBC 25 /hpf (0 - 5); Urine pH 5.5 (5.0-9.0)
[2024-04-15] MEDS ORDERED: CIPR-173 PO (19:12)
[2024-04-15] MEDS: CIPROFLOXACIN HCL 500 MG TAB PO ONE (19:39)
[2024-04-15 19:45] VITALS: BP 144/79; PULSE 66; RESP 19; TEMP 98; O2SAT 97
== END 2024-04-15 20:14 | disposition home or self-care (01) ==
LOC: ER 16:35
DX: N12 Tubulo-interstitial nephritis, not specified as acute or chronic (principal); M54.6 Pain in thoracic spine; I11.0 Hypertensive heart disease with heart failure; I50.9 Heart failure, unspecified; I25.10 Atherosclerotic heart disease of native coronary artery without angina pectoris; I48.91 Unspecified atrial fibrillation; I25.2 Old myocardial infarction; E11.9 Type 2 diabetes mellitus without complications; J45.909 Unspecified asthma, uncomplicated; E78.5 Hyperlipidemia, unspecified; E66.01 Morbid (severe) obesity due to excess calories; Z68.33 Body mass index [BMI] 33.0-33.9, adult; Z98.890 Other specified postprocedural states; Z88.8 Allergy status to other drugs, medicaments and biological substances; Z88.1 Allergy status to other antibiotic agents; Z91.040 Latex allergy status; Z79.899 Other long term (current) drug therapy
CPT/HCPCS: 71046; 74176; 81001; 96372; 99285; J1885

== ENCOUNTER 2024-06-01 04:14 | Emergency (ER) | payer OTHER ==
[~2024-06-01] VITALS: Ht 160 cm; Wt 85.5 kg
[~2024-06-01 04:14] MED LIST changes: +CIPR-173 PO
[2024-06-01 04:53] VITALS: TEMP 98.4
[2024-06-01 04:59] LABS: Basophils # (auto) 0.1 10 ^3/uL (0-0.2); Basophils % (auto) 0.7 % (0.0-2.0); Eosinophils # (auto) 0.1 10 ^3/uL (0-0.8); Eosinophils % (auto) 1.3 % (0.0-7.0); Hematocrit 34.1 % (36.0-46.0); Hemoglobin 11.3 g/dL (12.2-16.2); Lymphocytes # (auto) 2.2 10 ^3/uL (0.4-5.4); Lymphocytes % (auto) 26.4 % (10.0-50.0); Mean Corpuscular Hemoglobin 26.8 pg (28.0-32.0); Mean Corpuscular Hgb Conc. 33.1 g/dL (32.0-36.0); Monocytes # (auto) 0.6 10 ^3/uL (0-1.3); Monocytes % (auto) 7.3 % (0.0-12.0); Neutrophils # (auto) 5.4 10 ^3/uL (1.6-8.6); Neutrophils % (auto) 64.3 % (37.0-80.0); Nucleated Red Blood Cells % 0.1 %; Platelet Count (auto) 383 10^3/uL (140-450); Red Blood Cells 4.22 10^6/uL (4.0-5.20); White Blood Cell 8.3 10^3/uL (4.4-10.8)
[2024-06-01 05:09] LABS: Alanine Aminotransferase 23 U/L (7-40); Albumin 4.3 g/dL (3.2-4.8); Alkaline Phosphatase 150 U/L (46-116); Anion Gap 5 (5-15); Aspartate Aminotransferase 24 U/L (13-40); BUN/Creatinine Ratio 11.8 (10.0-20.0); Bilirubin, Total 0.4 mg/dL (0.2-1.0); Blood Urea Nitrogen 10 mg/dL (9-23); Carbon Dioxide 22 mmol/L (20-30); Chloride 113 mmol/L (98-107); Glucose 158 mg/dL (74-106); Potassium 3.6 mmol/L (3.5-5.1); Sodium 140 mmol/L (136-145); Total Protein 6.8 g/dL (5.7-8.2)
[2024-06-01] MEDS: ADENOSINE 6 MG/2 ML INJ IV ONE ×2 (05:12→05:52)
[2024-06-01 05:57] VITALS: BP 115/66; PULSE 74; RESP 17; O2SAT 98
== END 2024-06-01 06:06 | disposition home or self-care (01) ==
LOC: ER 04:14
DX: I47.10 Supraventricular tachycardia, unspecified (principal); I11.0 Hypertensive heart disease with heart failure; I50.9 Heart failure, unspecified; J45.909 Unspecified asthma, uncomplicated; E78.5 Hyperlipidemia, unspecified; R42 Dizziness and giddiness; Z86.73 Personal history of transient ischemic attack (TIA), and cerebral infarction without residual deficits; Z90.49 Acquired absence of other specified parts of digestive tract; Z98.51 Tubal ligation status; Z90.710 Acquired absence of both cervix and uterus; Z88.1 Allergy status to other antibiotic agents; Z91.040 Latex allergy status
CPT/HCPCS: 36415; 71045; 80053; 83880; 84484; 85025; 93005; 99291; J0153

== ENCOUNTER 2024-11-22 08:58 | Inpatient (IN) | payer OTHER ==
[~2024-11-22] VITALS: Ht 160 cm; Wt 89.6 kg
--- NOTE | 2024-11-22 09:05 | ECG ---
[facility] Test Date: 2024-11-22 Test Time: 09:00:41 Pat Name: HYUN AMANDA Department: er Room: 0240T Gender: F Rheumatology Specialist: briseida : 1955 Requested By: DARIAN MATHUR Order Number: [id number] Reading MD: Juan Dawson Measurements Intervals [place] Rate: 170 P: 0 IN: 0 QRS: 48 QRSD: 85 T: 64 QT: 288 QTc: 485 Interpretive Statements Atrial fibrillation with rapid V-rate ST depression, probably rate related Electronically Signed On 11-24-2024 22:06:31 PST by Juan Dawson Please click the below link to view image of tracing.
--- NOTE | 2024-11-22 09:15 | ED.PDOC ---
HPI Comments 69 year old female SHAKEEL presents to the ED with chief complaint of chest pain. EMS reports patient had started to experience left sided dull chest pain around 6am, so she went to her local urgent care for treatment. EMS relays that the 's EKG noted A-Fib on their monitor and they had called 911 for the patient. EMS states that the patient was noted to be in A-Fib RVR with a rate in the 170s along with the patient stating she is experiencing dizziness with associated pal pitations. Patient notes she has history of cardiac disease and MS. Patient reports she is currently on Warfarin for A-Fib. Patient denies any N/V, numbness, weakness, headache, SOB, or abdominal pain. Chief Complaint: Palpitations Time Seen by MD: 09:08 Primary Care Provider: PUNEET Reviewed Notes: Nurses Notes, Medications, Allergies Allergies: Coded Allergies: Glipizide (Unverified Allergy, Severe, 09/08/13) Erythromycin (Unverified Allergy, Intermediate, 09/08/13) Latex (Verified Allergy, Intermediate, RASH, 09/09/13) Gabapentin (Verified Allergy, Unknown, 04/21/19) Uncoded Allergies: TAPE (Allergy, Unknown, 04/21/19) Home Meds Active Scripts Ciprofloxacin Hcl (Cipro) 500 Mg Tab, 1 TAB PO BID, #20 TAB Prov:CHRIS HARRINGTON PAC 04/15/24 Acetaminophen (Acetaminophen) 500 Mg Tab, 500 MG PO Q4HP PRN, #20 TAB Prov:CHRIS HARRINGTON PAC 01/21/24 Amoxicillin & Pot Clavulanate (AUGMENTIN TABLET) 875 Mg Tb, 875 MG PO BID PRN for 7 Days, #14 TAB Prov:CHRIS HARRINGTON PAC 12/31/23 Metoprolol Tartrate (LOPRESSOR TABLET) 50 Mg Tb, 100 MG GT BID, #60 Prov:MESERET MORGAN MD 10/29/15 Warfarin Sodium (Coumadin) 5 Mg Tab, 1 TAB PO DAILY for 7 Days, TAB 1 Refill Prov:MESERET MORGAN MD 10/29/15 Reported Medications Duloxetine Hcl (Cymbalta) 60 Mg Cap, 60 MG PO BID, CAP 11/06/23 Insulin Glargine (Lantus) 100 Units/Ml Vial, 55 UNITS SC DAILY, #30 10/27/15 Insulin Lispro (Human) (Humalog) 100 Mg/Ml Inj, 8 BOTTLE SC AC, #30 10/27/15 Metformin Hydrochloride (Glumetza) 500 Mg Tab, 1 PO BID, #180 10/27/15 Atorvastatin Calcium (ATORVASTATIN CALCIUM) 20 Mg Tab, 1 PO HS, #90 10/27/15 Losartan Potassium (COZAAR TABLET) 50 Mg Tb, 1 PO BID, #180 10/27/15 Furosemide (Furosemide) 20 Mg Tab, 1 PO DAILY, #90 10/27/15 Amlodipine Besylate (Amlodipine Besylate) 2.5 Mg Tab, 1 PO BID, #180 10/27/15 Levothyroxine Sodium (Levothyroxine Sodium) 50 Mcg Tab, 1 PO, #90 10/27/15 Information Source: Patient, Emergency Med Personnel Mode of Arrival: EMS Severity: Moderate Timing: Hours Duration: Since onset Prehospital treatment: 12 Lead EKG, IVF Location: Chest (L) Radiation: No Radiation Quality: Aching Onset: At Rest Cardiac Risk Factors: Hyperlipidemia, HTN, Diabetes PE Risk Factors: None History of: Similar pain in past, MS, Aortic Disease Associated Signs and Symptoms: Palpitations Past Medical History PAST MEDICAL HISTORY: AFIB, Asthma, CAD, CHF, DM, High Lipids, HTN, MS, Thyroid, TIA, UTI'S Surgical History: Appendectomy, BTL, Cholecystectomy, , Hernia Repair, Hysterectomy, PTCA, Tonsillectomy [employer] History: Denies all [employer] Hx Family History Family History: Reviewed,noncontributory to illness, Family hx of DM, Family hx of Cancer, Family hx of HTN Family History (Other): CVA, MS Social History Smoker: Non-Smoker Alcohol: Denies ETOH Use Drugs: Denies Drug Use Lives In: Home Constitutional: denies: chills, diaphoresis, fatigue, fever, malaise, sweats, weakness, others EENTM: denies: blurred vision, double vision, ear bleeding, ear discharge, ear drainage, ear pain, ear ringing, eye pain, eye redness, hearing loss, mouth pain, mouth swelling, nasal discharge, nose bleeding, nose congestion, nose pain, photophobia, tearing, throat pain, throat swelling, voice changes, others Respiratory: denies: cough, hemoptysis, orthopnea, SOB at rest, shortness of breath, SOB with excertion, stridor, wheezing, others Cardiovascular: reports: chest pain, palpitations; denies: dizzy spells, diaphoresis, Dyspnea on exertion, edema, irregular heart beat, left arm pain, lightheadedness, PND, syncope, others Gastrointestinal: denies: abdomen distended, abdominal pain, blood streaked bowels, constipated, diarrhea, dysphagia, difficulty swallowing, hematemesis, melena, nausea, poor appetite, poor fluid intake, rectal bleeding, rectal pain, vomiting, others Genitourinary: denies: abnormal vagina bleeding, burning, dyspareunia, dysuria, flank pain, frequency, hematuria, incontinence, pain, , vagina discharge, urgency, others Neurological: reports: dizziness; denies: fainting, headache, left sided numbness, left sided weakness, numbness, paresthesia, pre-existing deficit, right sided numbness, right sided weakness, seizure, speech problems, tingling, tremors, weakness, others Musculoskeletal: denies: back pain, gout, joint pain, joint swelling, muscle pain, muscle stiffness, neck pain, others Integumetry: denies: bruises, change in color, change in hair/nails, dryness, laceration, lesions, lumps, rash, wounds, others Allergic/Immunocompromised: denies: Difficulty Healing, Frequent Infections, Hives, Itching, others Hematologic/Lymphatic: denies: anemia, blood clots, easy bleeding, easy bruising, swollen glands, others Endocrine: denies: excessive hunger, excessive sweating, excessive thirst, excessive urination, flushing, intolerance to cold, intolerance to heat, unexplained weight gain, unexplained weight loss, others Psychiatric: denies: anxiety, bipolar disorder, depression, hopeless, panic disorder, schizophrenia, sleepless, suicidal, others All Other Systems: Reviewed and Negative Physical Exam General Appearance: Moderate Distress, Normal HEENT: Normal ENT Inspection, PERRL/EOMI Neck: Full Range of Motion, Non-Tender, Normal, Normal Inspection Respiratory: Chest Non-Tender, Lungs Clear, No Accessory Muscle Use, No Respiratory Distress, Normal Breath Sounds Cardiovascular: Irregular, No Edema, No JVD, No Murmur, No Gallop, Normal Peripheral Pulses, Tachycardia Breast Exam: Deferred Gastrointestinal: No Organomegaly, Non Tender, No Pulsatile Mass, Normal Bowel Sounds, Soft Genitalia: Deferred Pelvic: Deferred Rectal: Deferred Extremities: No calf tenderness, Normal capillary refill, Normal inspection, Normal range of motion, Non-tender, No pedal edema Musculoskeletal : Apperance: Normal Neurologic: Alert, baker bench II-XII nml as Tested, No Motor Deficits, Normal Affect, Normal Mood, No Sensory Deficits Cerebellar Function: NOT DONE Reflexes: NOT DONE Skin: Dry, Normal Color, Warm Peripheral Pulses: 3+ Radial (R), 3+ Radial (L) Lymphatic: No Adenopathy Was a procedure done? Was a procedure done?: No CP Differential Dx Differential Diagnosis: A-fib, A-Flutter, Angina, Anxiety / Panic Attack, Atrial Dysrhythmia, Electrolyte Disorder X-Ray, Labs, Meds, VS Vital Signs Date Time Temp Pulse Resp B/P (MAP) Pulse Ox O2 Delivery O2 Flow Rate FiO2 11/22/24 12:00 62 11/22/24 10:12 80 11/22/24 10:02 145 11/22/24 09:26 171 11/22/24 09:00 170 11/22/24 09:00 Room Air* 0 21 11/22/24 09:00 98.1 140 18 114/68 (83) 97 Lab Test 11/22/24 12:09 11/22/24 09:54 11/22/24 09:06 Range/Units Troponin I High Sensitivity 18 12 10 </=34 ng/L White Blood Count 7.1 4.4-10.8 10^3/uL Red Blood Count 4.52 4.0-5.20 10^6/uL Hemoglobin 12.0 L 12.2-16.2 g/dL Hematocrit 38.2 36.0-46.0 % Mean Corpuscular Volume 84.5 80.0-100.0 fL Mean Corpuscular Hemoglobin 26.6 L 28.0-32.0 pg Mean Corpuscular Hemoglobin Concent 31.5 L 32.0-36.0 g/dL Red Cell Distribution Width 20.0 H 11.8-14.3 % Platelet Count 335 140-450 10^3/uL Mean Platelet Volume 7.5 6.9-10.8 fL Neutrophils (%) (Auto) 76.6 37.0-80.0 % Lymphocytes (%) (Auto) 15.0 10.0-50.0 % Monocytes (%) (Auto) 7.1 0.0-12.0 % Eosinophils (%) (Auto) 1.0 0.0-7.0 % Basophils (%) (Auto) 0.3 0.0-2.0 % Neutrophils # (Auto) 5.4 1.6-8.6 10 ^3/uL Lymphocytes # (Auto) 1.1 0.4-5.4 10 ^3/uL Monocytes # (Auto) 0.5 0-1.3 10 ^3/uL Eosinophils # (Auto) 0.1 0-0.8 10 ^3/uL Basophils # (Auto) 0 0-0.2 10 ^3/uL Nucleated Red Blood Cells 0.1 % Sodium Level 139 136-145 mmol/L Potassium Level 4.0 3.5-5.1 mmol/L Chloride Level 109 H 98-107 mmol/L Carbon Dioxide Level 21 20-31 mmol/L Anion Gap 9 5-15 Blood Urea Nitrogen 17 9-23 mg/dL Creatinine 0.90 0.550-1.02 mg/dL Glomerular Filtration Rate Calc 68 >90 mL/min BUN/Creatinine Ratio 18.9 10.0-20.0 Serum Glucose 96 74-106 mg/dL Calcium Level 10.0 8.7-10.4 mg/dL Current Medications Medications (Trade) Dose Ordered Sig/Pee Route Start Time Stop Time Status Last Admin Amiodarone HCl 100 ml @ 600 mls/hr ONCE ONCE IV 11/22/24 09:15 11/22/24 09:24 DC 11/22/24 10:00 Patient alert. Complaining of chest discomfort. EKG reviewed does show atrial fibrillation. Answering all questions. Saturation pristine on room air. She is on warfarin. Started amiodarone. Has risk factors for coronary artery disease. Was given aspirin. Reviewed her previous visit. Explained to the patient. Continue cardiac monitoring. Time of 1ST Reevaluation: 10:08 Reevaluation 1ST: Unchanged Patient Education/Counseling: Diagnosis, Treatment Family Education/Counseling: No Family Present Additional Information I reviewed the following notes from patient's past medical encounters: 06/01/24 for chest pain The following tests were ordered, and results were reviewed by me: CBC, BMP, Troponin, EKG, Chest XR I reviewed and agreed with the following test results read by other providers: Chest XR Additional Information was gathered from interviewing the following independent historians: EMS I discussed treatment and results with medical personnel. Departure 1 Departure Time of Disposition: 09:17 Impression: Primary Impression: Atrial fibrillation with RVR Disposition: ADMITTED INPATIENT Admit to: Med Surg Condition: Guarded Critical Care Note Critical Care Time?: Yes (90 min-critical care time only) Critical care comment: Started amiodarone Stability Stability form required: No Heart Score Heart Score: Heart Score Response (Comments) Value History Highly Suspicious 2 EKG Repolarization Disturb 1 Age >65 2 Risk Factors >3 or Hx ASHD 2 Troponin Normal limit 0 Total 7 I personally scribed for DARIAN MATHUR MD ([email or web address]) on 11/22/24 at 09:15. Electronically submitted by Vadim Rosas ([email or web address]). DARIAN MATHUR MD Nov 22, 2024 09:15
[2024-11-22 09:47] LABS: Basophils # (auto) 0 10 ^3/uL (0-0.2); Basophils % (auto) 0.3 % (0.0-2.0); Eosinophils # (auto) 0.1 10 ^3/uL (0-0.8); Hematocrit 38.2 % (36.0-46.0); Lymphocytes # (auto) 1.1 10 ^3/uL (0.4-5.4); Mean Corpuscular Hemoglobin 26.6 pg (28.0-32.0); Mean Corpuscular Hgb Conc. 31.5 g/dL (32.0-36.0); Mean Corpuscular Volume 84.5 fL (80.0-100.0); Monocytes # (auto) 0.5 10 ^3/uL (0-1.3); Monocytes % (auto) 7.1 % (0.0-12.0); Neutrophils # (auto) 5.4 10 ^3/uL (1.6-8.6); Neutrophils % (auto) 76.6 % (37.0-80.0); Nucleated Red Blood Cells % 0.1 %; Platelet Count (auto) 335 10^3/uL (140-450); Red Blood Cells 4.52 10^6/uL (4.0-5.20); White Blood Cell 7.1 10^3/uL (4.4-10.8)
--- NOTE | 2024-11-22 09:52 | DVH ---
EXAM: XY CHEST PORTABLE Indication: sob Technique: Single frontal view of the chest was obtained Comparison: XY CHEST PORTABLE on DOS: 06/01/24, XY CHEST PORTABLE on DOS: 12/31/23, XY CHEST PORTABLE o n DOS: 11/05/23, XY CHEST PORTABLE on DOS: 11/03/23, CHEST PORTABLE on DOS: 05/24/21 FINDINGS: Lines and Tubes: None Lungs: No focal consolidation. Pleura: No effusion. No pneumothorax. Cardiomediastinal contours: Unremarkable Bones: No acute osseous abnormality. IMPRESSION: No acute cardiopulmonary disease.
[2024-11-22 10:00] VITALS: PULSE 150; RESP 19; O2SAT 95
[2024-11-22] MEDS: AMIODARONE BOLUS KIT 100 ML IV ONE (10:00)
--- NOTE | 2024-11-22 10:03 | ECG ---
[facility] Test Date: 2024-11-22 Test Time: 10:02:46 Pat Name: HYUN AMANDA Department: er Room: 0240T Gender: F Junior Bookkeeper: briseida : 1955 Requested By: DARIAN MATHUR Order Number: [id number] Reading MD: Juan Dawson Measurements Intervals [place] Rate: 145 P: 0 MO: 0 QRS: 34 QRSD: 84 T: 61 QT: 315 QTc: 490 Interpretive Statements Atrial fibrillation Minimal ST depression, inferior leads Borderline prolonged QT interval Electronically Signed On 11-24-2024 22:06:47 PST by Juan Dawson Please click the below link to view image of tracing.
[2024-11-22] MEDS: AMIODARONE 360mg/200mL PREMIX 200 ML IV ONE (10:08)
[2024-11-22 10:19] LABS: Sodium 139 mmol/L (136-145)
[2024-11-22 10:20] LABS: Anion Gap 9 (5-15); Carbon Dioxide 21 mmol/L (20-31)
[2024-11-22 10:25] LABS: BUN/Creatinine Ratio 18.9 (10.0-20.0); Blood Urea Nitrogen 17 mg/dL (9-23); Glucose 96 mg/dL (74-106)
[2024-11-22 10:32] LABS: Chloride 109 mmol/L (98-107)
[2024-11-22] MEDS ORDERED: ONDANSETRON HCL 4 MG/2 ML VIAL IV PRN (14:45)
[2024-11-22] MEDS ORDERED: HYDROcodone-ACET 5/325MG TAB PO PRN (14:45)
[2024-11-22] MEDS ORDERED: ACETAMINOPHEN 325 MG TAB PO PRN (14:45)
[2024-11-22] MEDS ORDERED: NITROGLYCERIN 0.4 MG SL TAB SL PRN (14:45)
[2024-11-22] MEDS ORDERED: MORPHINE SULFATE INJ 2 MG/ml SYRG IV PRN ×2 (14:45)
--- NOTE | 2024-11-22 16:23 | DVHHP2 ---
History of Present Illness Reason for Visit: Chest pain and palpitations History of Present Illness 69-year-old female with a known history of chronic AFib currently on Coumadin, hypertension, diabetes mellitus type 2, peripheral neuropathy initially presented to the hospital with chest pain and palpitations found to have AFib with a RVR status post amiodarone bolus currently on amiodarone drip. Patient was currently denying any chest pain palpitations. Denies any known heart rate but does say that she has a known congestive heart failure. Currently denies any chest pain palpitation shortness of breaths or leg swelling. Cardiovascular: AFIB, CHF, HTN, hyperipidemia Past Surgical History: None Family History: None Smoke: No ALCOHOL: none Review of Systems Review of Systems Twelve review of system were negative except mentioned above. Allergies: Coded Allergies: Glipizide (Unverified Allergy, Severe, 09/08/13) Erythromycin (Unverified Allergy, Intermediate, 09/08/13) Latex (Verified Allergy, Intermediate, RASH, 09/09/13) Gabapentin (Verified Allergy, Unknown, 04/21/19) Uncoded Allergies: TAPE (Allergy, Unknown, 04/21/19) Medications Current Medications Medications Dose Ordered Sig/Pee Route Start Time Stop Time Status Last Admin Dose Admin Acetaminophen/ Hydrocodone Bitart 1 tab Q4HP PRN PO 11/22/24 14:45 Ondansetron HCl 4 mg Q4HP PRN IV 11/22/24 14:45 Enoxaparin Sodium 40 mg DAILY SC 11/23/24 10:00 Acetaminophen 650 mg Q6HP PRN PO 11/22/24 14:45 Morphine Sulfate 2 mg Q4HPRN PRN IV 11/22/24 14:45 Nitroglycerin 0.4 mg Q5MINP PRN SL 11/22/24 14:45 Morphine Sulfate 2 mg Q30M PRN IV 11/22/24 14:45 Metoprolol Tartrate 100 mg BID GT 11/22/24 22:00 Patient Own Medication 60 mg BID PO 11/22/24 22:00 UNV Warfarin Sodium RX PROTOCOL PER PHARMACY PO 11/22/24 14:45 Duloxetine HCl 60 mg BID PO 11/22/24 22:00 Exam Vital Signs Vital Signs Date Time Temp Pulse Resp B/P (MAP) Pulse Ox O2 Delivery O2 Flow Rate FiO2 11/22/24 14:01 63 17 102/50 (67) 94 11/22/24 10:00 Room Air* 0 21 11/22/24 09:31 98.9 98.9 Exam HEENT pupils are reactive Neck is supple CV is S1-S2 irregularly irregular rate and rhythm. Respiratory diminished breath sound bases GI positive bowel sound Extremity no edema [employer]ERCISER [employer]ORSE no motor deficit Labs/Xrays Labs Test 11/22/24 15:46 11/22/24 12:09 11/22/24 09:06 Range/Units Troponin I High Sensitivity 18 </=34 ng/L White Blood Count 7.1 4.4-10.8 10^3/uL Red Blood Count 4.52 4.0-5.20 10^6/uL Hemoglobin 12.0 L 12.2-16.2 g/dL Hematocrit 38.2 36.0-46.0 % Mean Corpuscular Volume 84.5 80.0-100.0 fL Mean Corpuscular Hemoglobin 26.6 L 28.0-32.0 pg Mean Corpuscular Hemoglobin Concent 31.5 L 32.0-36.0 g/dL Red Cell Distribution Width 20.0 H 11.8-14.3 % Platelet Count 335 140-450 10^3/uL Mean Platelet Volume 7.5 6.9-10.8 fL Neutrophils (%) (Auto) 76.6 37.0-80.0 % Lymphocytes (%) (Auto) 15.0 10.0-50.0 % Monocytes (%) (Auto) 7.1 0.0-12.0 % Eosinophils (%) (Auto) 1.0 0.0-7.0 % Basophils (%) (Auto) 0.3 0.0-2.0 % Neutrophils # (Auto) 5.4 1.6-8.6 10 ^3/uL Lymphocytes # (Auto) 1.1 0.4-5.4 10 ^3/uL Monocytes # (Auto) 0.5 0-1.3 10 ^3/uL Eosinophils # (Auto) 0.1 0-0.8 10 ^3/uL Basophils # (Auto) 0 0-0.2 10 ^3/uL Nucleated Red Blood Cells 0.1 % Sodium Level 139 136-145 mmol/L Potassium Level 4.0 3.5-5.1 mmol/L Chloride Level 109 H 98-107 mmol/L Carbon Dioxide Level 21 20-31 mmol/L Anion Gap 9 5-15 Blood Urea Nitrogen 17 9-23 mg/dL Creatinine 0.90 0.550-1.02 mg/dL Glomerular Filtration Rate Calc 68 >90 mL/min BUN/Creatinine Ratio 18.9 10.0-20.0 Serum Glucose 96 74-106 mg/dL Calcium Level 10.0 8.7-10.4 mg/dL Assessment/Plan Assessment/Plan 69-year-old female with a known history of chronic AFib currently on Coumadin, hypertension, diabetes mellitus type 2, dyslipidemia initially presented to the hospital with chest pain and palpitation found to have 1. AFib with RVR currently on amiodarone drip 2. Chest pain and palpitation secondary to 1. 3. Hypertension 4. Diabetes mellitus type 2 5. Dyslipidemia -continue amiodarone drip, 2D echo cardiology consultation, resume Coumadin per pharmacy. -plan of care discussed with the patient who understand verbalized understanding and agreeable to plan. Plan discussed with: Patient, Other My Orders Orders - MESERET MORGAN MD Procedure Category Date Status Time Prothrombin Time W/ LAB 11/22/24 In Process INR 14:32 Admit ADMIT 11/22/24 Transmitted 14:32 Code Status CODE 11/22/24 Transmitted 14:32 2 Gm Sodium Diet DIET 11/22/24 Transmitted Dinner Hydrocodone-Acet PHA 11/22/24 In Process 5/325mg Tab ([place] 14:45 Ondansetron Hcl PHA 11/22/24 In Process (Zofran) 14:45 Enoxaparin Sodium PHA 11/23/24 In Process (Lovenox) 10:00 Complete Blood Count LAB 11/23/24 Verified 04:00 Comprehensive LAB 11/23/24 Verified Metabolic Panel 04:00 Pt Request For Service PT 11/22/24 Logged 14:32 Condition: Fair HATTIE 11/22/24 In Process 14:32 Acetaminophen Tablet PHA 11/22/24 In Process (Tylenol Tablet) 14:45 Morphine Sulfate PHA 11/22/24 In Process Injection 14:45 Nitroglycerin PHA 11/22/24 In Process Sublingual (Ntrostat 14:45 Morphine Sulfate PHA 11/22/24 In Process Injection 14:45 Stat Ekg For Chest HATTIE 11/22/24 In Process Pain 14:32 Notify Of Changes HATTIE 11/22/24 In Process From Base 14:32 Food Service Agent For [facility] 11/22/24 In Process 24 Hours 14:32 Emergency Dysrhythmia [facility] 11/22/24 In Process Protocol 14:32 Rhythm Strips Once [facility] 11/22/24 In Process Every Shift 14:32 Oxygen By Nasal RT 11/22/24 Transmitted Cannula 14:32 * Cardiology Consult CONS 11/22/24 Transmitted 14:32 Metoprolol Tartrate PHA 11/22/24 In Process Tablet (Lopressor Ta 22:00 Warfarin Per Rx PHA 11/22/24 In Process Protocol (Coumadin 14:45 Duloxetine Hcl PHA 11/22/24 In Process Capsule (Cymbalta 22:00 Date of Service: Nov 22, 2024 Billing Provider: MESERET MORGAN MD Common Visit Codes: NOT BILLABLE MESERET MORGAN MD Nov 22, 2024 16:23
[2024-11-22 16:25] LABS: INR 2.74 (0.9-1.15); Prothrombin Time 26.3 sec (9.3-11.8)
[2024-11-22] MEDS: WARFARIN SODIUM 5 MG TAB PO ONE (18:13)
[2024-11-22] MEDS: WARFARIN SODIUM 1 MG TAB PO ONE (18:28)
[2024-11-22 19:30] VITALS: PULSE 73; RESP 16; O2SAT 97
[2024-11-22] MEDS ORDERED: PATIENTS OWN MEDICATION (Duloxetine Hcl (Cymbalta) 60 MG) PO SCH (22:00)
[2024-11-22] MEDS: METOPROLOL TARTRATE 50 MG TAB GT SCH (22:07)
[2024-11-22] MEDS: DULoxetine HCL 30 MG CAP PO SCH (22:07)
[2024-11-22 22:58] LABS: Urine Bacteria MANY /hpf (None Seen); Urine Blood TRACE /uL (Negative); Urine Clarity Turbid (Clear); Urine Color Light-Orange (Yellow); Urine Hyaline Cast FEW /lpf (0 - 2); Urine Mucus FEW (None Seen); Urine Protein, UAD TRACE (Negative); Urine Specific Gravity 1.024 (1.001-1.035); Urine Squamous Epithelial Cell FEW /hpf (<5); Urine Urobilinogen Normal (Negative); Urine WBC 79 /HPF (0-5); Urine pH 5.5 (5.0-9.0)
[2024-11-23 03:51] LABS: Basophils # (auto) 0 10 ^3/uL (0-0.2); Basophils % (auto) 0.5 % (0.0-2.0); Eosinophils # (auto) 0.1 10 ^3/uL (0-0.8); Lymphocytes # (auto) 0.7 10 ^3/uL (0.4-5.4); Neutrophils # (auto) 3.3 10 ^3/uL (1.6-8.6)
[2024-11-23 03:54] LABS: Eosinophils % (auto) 1.4 % (0.0-7.0); Hematocrit 34.4 % (36.0-46.0); Hemoglobin 11.1 g/dL (12.2-16.2); Lymphocytes % (auto) 15.3 % (10.0-50.0); Mean Corpuscular Hemoglobin 26.6 pg (28.0-32.0); Mean Corpuscular Hgb Conc. 32.2 g/dL (32.0-36.0); Mean Corpuscular Volume 82.7 fL (80.0-100.0); Monocytes # (auto) 0.5 10 ^3/uL (0-1.3); Monocytes % (auto) 10.3 % (0.0-12.0); Neutrophils % (auto) 72.5 % (37.0-80.0); Nucleated Red Blood Cells % 0.3 %; Platelet Count (auto) 317 10^3/uL (140-450); Red Blood Cells 4.15 10^6/uL (4.0-5.20); White Blood Cell 4.6 10^3/uL (4.4-10.8)
[2024-11-23 04:07] LABS: Alanine Aminotransferase 24 U/L (7-40); Albumin 4.3 g/dL (3.2-4.8); Alkaline Phosphatase 82 U/L (46-116); Anion Gap 9 (5-15); Aspartate Aminotransferase 29 U/L (13-40); BUN/Creatinine Ratio 17.9 (10.0-20.0); Bilirubin, Total 0.6 mg/dL (0.2-1.0); Blood Urea Nitrogen 14 mg/dL (9-23); Calcium 9.3 mg/dL (8.7-10.4); Carbon Dioxide 21 mmol/L (20-31); Glucose 83 mg/dL (74-106); INR 2.73 (0.9-1.15); Potassium 3.6 mmol/L (3.5-5.1); Prothrombin Time 26.2 sec (9.3-11.8); Sodium 139 mmol/L (136-145)
[2024-11-23 04:08] LABS: Total Protein 6.2 g/dL (5.7-8.2)
[2024-11-23 04:37] LABS: Chloride 109 mmol/L (98-107)
[2024-11-23 08:11] VITALS: PULSE 63; RESP 15; O2SAT 94
[2024-11-23] MEDS ORDERED: ENOXAPARIN SOD 40 MG/0.4 ML SYRINGE SC SCH (10:00)
[2024-11-23] MEDS: cefTRIAXone 1GM/50ML D5W 50 ML IV SCH (10:07)
[2024-11-23] MEDS ORDERED: CEFD300C2 PO (11:10)
--- NOTE | 2024-11-23 16:15 | DVHDS2 ---
Discharge Summary Date of Admission Nov 22, 2024 at 14:32 Date of Discharge: Nov 23, 2024 Labs/Diagnostic Data: Laboratory Results Test 11/23/24 03:25 11/22/24 22:38 11/22/24 12:09 White Blood Count 4.6 10^3/uL (4.4-10.8) Red Blood Count 4.15 10^6/uL (4.0-5.20) Hemoglobin 11.1 g/dL (12.2-16.2) Hematocrit 34.4 % (36.0-46.0) Mean Corpuscular Volume 82.7 fL (80.0-100.0) Mean Corpuscular Hemoglobin 26.6 pg (28.0-32.0) Mean Corpuscular Hemoglobin Concent 32.2 g/dL (32.0-36.0) Red Cell Distribution Width 20.0 % (11.8-14.3) Platelet Count 317 10^3/uL (140-450) Mean Platelet Volume 7.5 fL (6.9-10.8) Neutrophils (%) (Auto) 72.5 % (37.0-80.0) Lymphocytes (%) (Auto) 15.3 % (10.0-50.0) Monocytes (%) (Auto) 10.3 % (0.0-12.0) Eosinophils (%) (Auto) 1.4 % (0.0-7.0) Basophils (%) (Auto) 0.5 % (0.0-2.0) Neutrophils # (Auto) 3.3 10 ^3/uL (1.6-8.6) Lymphocytes # (Auto) 0.7 10 ^3/uL (0.4-5.4) Monocytes # (Auto) 0.5 10 ^3/uL (0-1.3) Eosinophils # (Auto) 0.1 10 ^3/uL (0-0.8) Basophils # (Auto) 0 10 ^3/uL (0-0.2) Nucleated Red Blood Cells 0.3 % Prothrombin Time 26.2 sec (9.3-11.8) Prothrombin Time INR 2.73 (0.9-1.15) Sodium Level 139 mmol/L (136-145) Potassium Level 3.6 mmol/L (3.5-5.1) Chloride Level 109 mmol/L (98-107) Carbon Dioxide Level 21 mmol/L (20-31) Anion Gap 9 (5-15) Blood Urea Nitrogen 14 mg/dL (9-23) Creatinine 0.78 mg/dL (0.550-1.02) Glomerular Filtration Rate Calc 81 mL/min (>90) BUN/Creatinine Ratio 17.9 (10.0-20.0) Serum Glucose 83 mg/dL (74-106) Calcium Level 9.3 mg/dL (8.7-10.4) Total Bilirubin 0.6 mg/dL (0.2-1.0) Aspartate Amino Transferase (AST) 29 U/L (13-40) Alanine Aminotransferase (ALT) 24 U/L (7-40) Alkaline Phosphatase 82 U/L (46-116) Total Protein 6.2 g/dL (5.7-8.2) Albumin 4.3 g/dL (3.2-4.8) Urine Color Light-orange (Yellow) Urine Clarity Turbid (Clear) Urine pH 5.5 (5.0-9.0) Urine Specific [place] 1.024 (1.001-1.035) Urine Protein Trace (Negative) Urine Ketones Negative (Negative) Urine Blood Trace /uL (Negative) Urine Nitrite Negative (Negative) Urine Bilirubin Negative (Negative) Urine Urobilinogen Normal mg/dL (Negative) Urine Leukocyte Esterase 2+ /uL (Negative) Urine RBC 4 /hpf (0 - 4) Urine Microscopic WBC 79 /HPF (0-5) Urine Squamous Epithelial Cells Few /hpf (<5) Urine Bacteria Many /hpf (None Seen) Urine Hyaline Casts Few /lpf (0 - 2) Urine Mucus Few (None Seen) Urine Glucose Normal mg/dL (Normal) Troponin I High Sensitivity 18 ng/L (</=34) Other Laboratory Tests 11/23/24 03:25 Brief Hx & Hospital Course: 69-year-old female with a known history of chronic AFib currently on Coumadin, hypertension, diabetes mellitus type 2, dyslipidemia initially presented to the hospital with chest pain and palpitation found to have AFib with a RVR. Patient was started on amiodarone drip. Patient heart rate improved. Patient is currently in normal sinus rhythm. Amiodarone is off. Patient does have UTI which was treated with the IV antibiotics which will be switched to p.o. antibiotics. Patient is being discharged under stable condition once cleared by Cardiology. Condition at Discharge: Stable Final Diagnosis/Problems List 1. AFib with RVR currently resolved 2. Chest pain and palpitation secondary to 1. , improved 3. Hypertension 4. Diabetes mellitus type 2 5. Dyslipidemia 6. Urinary tract infection Discharge Disposition: Home with Health Services SNF Discharge Will this Physician continue t: No Discharge Instruct/Medications Diet: Cardiac 2g Na,low cholest Diet comment: 1999 ADA diet Activity: No Restrictions, As Tolerated Follow Up/Referral: Polyp with PCP in 2-3 days to follow up on the urine culture Follow up with Cardiology in 1-2 weeks Medications: Cefdinir Discharge Statement: "Patient was advised to return to the ER or call 911 if any headaches, dizziness, shortness of breath, chest pain, abdominal pain, bleeding, fevers, or worsening of medical condition. Patient was counseled about treatment plan, medications, possible side effects, patientverbalized understanding. All questions were answered to the best of my ability. This discharge took greater then 30 minutes in planning, reviewing documentation, counseling the patient, and discussing with other team members." ASSESSMENT ASSESSMENT Assessment 69-year-old female with a known history of chronic AFib currently on Coumadin, hypertension, diabetes mellitus type 2, dyslipidemia initially presented to the hospital with chest pain and palpitation found to have 1. AFib with RVR currently on amiodarone drip 2. Chest pain and palpitation secondary to 1. 3. Hypertension 4. Diabetes mellitus type 2 5. Dyslipidemia Date of Service: Nov 23, 2024 Billing Provider: MESERET MORGAN MD Common Visit Codes: NOT BILLABLE MESERET MORGAN MD Nov 23, 2024 16:15
[2024-11-23] MEDS: WARFARIN SODIUM 5 MG TAB PO ONE (16:41)
--- NOTE | 2024-11-23 16:50 | DVHSR ---
APPROVED REPORT EXAM: Two-dimensional and M-mode echocardiogram with Doppler and color Doppler. Blood Pressure: 114/68 mmHg INDICATION Afib with rvr RISK FACTORS Height: 5'3", Weight: 189 DIMENSIONS LVDd4.4 (3.8-5.7cm)LA (2D)4.3 (1.9-4.0cm)Aortic Root3.4 (2.0-3.7cm) LVDs2.9 (2.5-4.0cm)LA (MM) (1.9-4.0cm)Aortic Cusp Exc1.7 (1.5-2.0cm) EF (%) 60.0 (55-70%)Rt. Atrium4.0 (1.9-4.0cm)Asc. Aorta cm IVSd1.1 (0.7-1.1cm)RV (D) (1.8-2.4cm) PWd1.2 (0.7-1.1cm) Mitral Valve MitralMitral Stenosis E wave0.89m/sMV Mean GR.mmHg A wave0.92m/sMV Peak GR.mmHg E/A ratio1.02D MVAcm2 DECEL [id number] 1/2 Timems Aortic Valve Aortic ValveAortic Stenosis V10.86m/Jesse Mean GR.3mmHg V21.18m/Jesse Peak GR.6mmHg LVOT Diameter1.9 (1.8-2.4cm)Doppler AVA2.07cm2 Pulmonic Valve V20.79m/s Tricuspid Valve TR Velocity2.24m/s [id number] Other Information Technically limited study due to body habitus. Conclusion Technically good study. Sinus rhythm. Left atrial enlargement. Valves appear to be structurally normal. EF of 60% with normal RV function. Doppler reveals no significant regurgitant jets. Pericardial effusion masses or vegetations.
[2024-11-23] MEDS ORDERED: WARFARIN SODIUM 1 MG TAB PO ONE (18:00)
[2024-11-23] MEDS ORDERED: WARFARIN SODIUM 5 MG TAB PO ONE (18:00)
[2024-11-23 18:30] VITALS: PULSE 63
[2024-11-23 20:00] VITALS: PULSE 62; PULSE 64; RESP 19; O2SAT 94
[2024-11-23 21:00] VITALS: BP 127/67; PULSE 64; RESP 19; TEMP 97.9; O2SAT 94
[2024-11-23] MEDS: AMIODARONE HCL 200 MG TAB PO SCH (21:20)
--- NOTE | 2024-11-23 22:07 | DVHINCON2 ---
Date Seen: Nov 23, [address] Morgan Reason for Consultation Palpitations History of Present Illness 69-year-old lady with a history of dysrhythmias in syncope comes in complaining of palpitations and chest pain. She was found to be in rapid atrial fibrillation. She was placed on amiodarone. She was treated and she converted to sinus rhythm. Her symptoms disappeared. She has been hospitalized here in the past has a history of SVT that has been clearly document. She denies any chest pain at this time. Past Medical History Her past medical history significant for hypertension congestive heart failure atrial fibrillation coronary artery disease. Hyperlipidemia. History of stenting to the diagonal artery dating back to 2014. Past Surgical History Noncontributory Family History: Cancer G8 MOTHER Family history: Diabetes mellitus G8 MOTHER G8 FATHER Family history: Hypercholesterolemia (situation) G8 MOTHER Family history: Hypertension G8 MOTHER G8 FATHER Allergies: Coded Allergies: Glipizide (Unverified Allergy, Severe, 09/08/13) Erythromycin (Unverified Allergy, Intermediate, 09/08/13) Latex (Verified Allergy, Intermediate, RASH, 09/09/13) Gabapentin (Verified Allergy, Unknown, 04/21/19) Uncoded Allergies: TAPE (Allergy, Unknown, 04/21/19) Home Meds Active Scripts Cefdinir (Cefdinir) 300 Mg Cap, 1 CAP PO BID, #10 CAP Prov:MESERET MORGAN MD 11/23/24 Ciprofloxacin Hcl (Cipro) 500 Mg Tab, 1 TAB PO BID, #20 TAB Prov:CHRIS HARRINGTON PAC 04/15/24 Acetaminophen (Acetaminophen) 500 Mg Tab, 500 MG PO Q4HP PRN, #20 TAB Prov:CHRIS HARRINGTON PAC 01/21/24 Amoxicillin & Pot Clavulanate (AUGMENTIN TABLET) 875 Mg Tb, 875 MG PO BID PRN for 7 Days, #14 TAB Prov:CHRIS HARRINGTON PAC 12/31/23 Metoprolol Tartrate (LOPRESSOR TABLET) 50 Mg Tb, 100 MG GT BID, #60 Prov:MESERET MORGAN MD 10/29/15 Warfarin Sodium (Coumadin) 5 Mg Tab, 1 TAB PO DAILY for 7 Days, TAB 1 Refill Prov:MESERET MORGAN MD 10/29/15 Reported Medications Duloxetine Hcl (Cymbalta) 60 Mg Cap, 60 MG PO BID, CAP 11/06/23 Insulin Glargine (Lantus) 100 Units/Ml Vial, 55 UNITS SC DAILY, #30 10/27/15 Insulin Lispro (Human) (Humalog) 100 Mg/Ml Inj, 8 BOTTLE SC AC, #30 10/27/15 Metformin Hydrochloride (Glumetza) 500 Mg Tab, 1 PO BID, #180 10/27/15 Atorvastatin Calcium (ATORVASTATIN CALCIUM) 20 Mg Tab, 1 PO HS, #90 10/27/15 Losartan Potassium (COZAAR TABLET) 50 Mg Tb, 1 PO BID, #180 10/27/15 Furosemide (Furosemide) 20 Mg Tab, 1 PO DAILY, #90 10/27/15 Amlodipine Besylate (Amlodipine Besylate) 2.5 Mg Tab, 1 PO BID, #180 10/27/15 Levothyroxine Sodium (Levothyroxine Sodium) 50 Mcg Tab, 1 PO, #90 10/27/15 Current Medications Current Medications Medications (Trade) Dose Ordered Sig/Pee Route PRN Reason Start Time Stop Time Status Last Admin Enoxaparin Sodium (Lovenox) 40 mg DAILY SC 11/23/24 10:00 Hold Ceftriaxone Sodium 50 ml @ 100 mls/hr DAILY@09 IV 11/23/24 10:00 11/23/24 10:07 Amiodarone HCl (Cordarone Tablet) 200 mg Q12HR PO 11/23/24 22:00 11/23/24 21:20 Review of Systems Review of systems was noncontributory with the exception that moderate above. No constitutional symptoms of fevers chills or weight loss. Cardiac and respiratory as noted. ENT negative. No history of recent syncope. GI and musculoskeletal unremarkable. Vital Signs Vital Signs Date Time Temp Pulse Resp B/P (MAP) Pulse Ox O2 Delivery O2 Flow Rate FiO2 11/23/24 21:20 62 121/61 11/23/24 18:30 Room Air* 0 21 11/23/24 17:00 20 92 11/23/24 08:07 97.3 97.3 Physical Exam A pustule examination she is lying back comfortably. No further palpitations or chest pain. HEENT examination was unremarkable lungs are clear heart exam is regular. Extremities are well perfused. Neurologically intact. Integumentary is within normal limits. Labs/Diagnostic Data Labs Test 2/19/25 03:25 11/22/24 22:38 11/22/24 12:09 Range/Units White Blood Count 4.6 # 4.4-10.8 10^3/uL Red Blood Count 4.15 4.0-5.20 10^6/uL Hemoglobin 11.1 L 12.2-16.2 g/dL Hematocrit 34.4 L 36.0-46.0 % Mean Corpuscular Volume 82.7 80.0-100.0 fL Mean Corpuscular Hemoglobin 26.6 L 28.0-32.0 pg Mean Corpuscular Hemoglobin Concent 32.2 32.0-36.0 g/dL Red Cell Distribution Width 20.0 H 11.8-14.3 % Platelet Count 317 140-450 10^3/uL Mean Platelet Volume 7.5 6.9-10.8 fL Neutrophils (%) (Auto) 72.5 37.0-80.0 % Lymphocytes (%) (Auto) 15.3 10.0-50.0 % Monocytes (%) (Auto) 10.3 0.0-12.0 % Eosinophils (%) (Auto) 1.4 0.0-7.0 % Basophils (%) (Auto) 0.5 0.0-2.0 % Neutrophils # (Auto) 3.3 1.6-8.6 10 ^3/uL Lymphocytes # (Auto) 0.7 0.4-5.4 10 ^3/uL Monocytes # (Auto) 0.5 0-1.3 10 ^3/uL Eosinophils # (Auto) 0.1 0-0.8 10 ^3/uL Basophils # (Auto) 0 0-0.2 10 ^3/uL Nucleated Red Blood Cells 0.3 % Prothrombin Time 26.2 H 9.3-11.8 sec Prothrombin Time INR 2.73 H 0.9-1.15 Sodium Level 139 136-145 mmol/L Potassium Level 3.6 3.5-5.1 mmol/L Chloride Level 109 H 98-107 mmol/L Carbon Dioxide Level 21 20-31 mmol/L Anion Gap 9 5-15 Blood Urea Nitrogen 14 9-23 mg/dL Creatinine 0.78 0.550-1.02 mg/dL Glomerular Filtration Rate Calc 81 >90 mL/min BUN/Creatinine Ratio 17.9 10.0-20.0 Serum Glucose 83 74-106 mg/dL Calcium Level 9.3 8.7-10.4 mg/dL Total Bilirubin 0.6 0.2-1.0 mg/dL Aspartate Amino Transferase (AST) 29 13-40 U/L Alanine Aminotransferase (ALT) 24 7-40 U/L Alkaline Phosphatase 82 46-116 U/L Total Protein 6.2 5.7-8.2 g/dL Albumin 4.3 3.2-4.8 g/dL Urine Color Light-orange Yellow Urine Clarity Turbid H Clear Urine pH 5.5 5.0-9.0 Urine Specific [place] 1.024 1.001-1.035 Urine Protein Trace H Negative Urine Ketones Negative Negative Urine Blood Trace H Negative /uL Urine Nitrite Negative Negative Urine Bilirubin Negative Negative Urine Urobilinogen Normal Negative mg/dL Urine Leukocyte Esterase 2+ Negative /uL Urine RBC 4 0 - 4 /hpf Urine Microscopic WBC 79 H 0-5 /HPF Urine Squamous Epithelial Cells Few <5 /hpf Urine Bacteria Many H None Seen /hpf Urine Hyaline Casts Few 0 - 2 /lpf Urine Mucus Few None Seen Urine Glucose Normal Normal mg/dL Troponin I High Sensitivity 18 </=34 ng/L Assessment Increased BMI. Hypertension. Atrial fibrillation. Paroxysmal dysrhythmias. Paroxysmal atrial fibrillation on anticoagulation. Coronary artery disease. Hyperlipidemia. History of syncope. Plan/Recommendation Echocardiogram performed shows no significant abnormalities. Normal LV function. Troponins thus far negative without significant indication for myocardial injury We will obtain event monitor and stress test as an outpatient. Continue with amiodarone 200 b.i.d. orally. Follow up in 2-3 weeks as an outpatient. Patient was clear for discharge. Plan discussed with: Patient NYHA Physical activity limitations: Class2(Slight)fatigue,sob Date of Service: Nov 23, 2024 Billing Provider: ZONIA DE LA CRUZ Sr., MD Cardiology Common Codes: 54683-[id number] INP/OBS CARE (High) ZONIA DE LA CRUZ Sr., MD Nov 23, 2024 22:07
[2024-11-24 01:00] VITALS: BP 134/69; PULSE 65; RESP 19; TEMP 98; O2SAT 96
[2024-11-24 05:00] VITALS: BP 121/71; PULSE 60; RESP 19; TEMP 98; O2SAT 93
[2024-11-24 06:02] LABS: INR 3.3 (0.9-1.15); Partial Thromboplastin Time 41.9 SEC (24.5-34.5); Prothrombin Time 31.1 sec (9.3-11.8)
[2024-11-24 08:22] VITALS: PULSE 57; PULSE 62; RESP 14; O2SAT 95
[2024-11-24 09:00] VITALS: BP 123/64; PULSE 60; RESP 14; TEMP 98.1; O2SAT 95
[2024-11-24 09:24] LABS: Basophils # (auto) 0 10 ^3/uL (0-0.2); Basophils % (auto) 0.5 % (0.0-2.0); Eosinophils # (auto) 0.1 10 ^3/uL (0-0.8); Hematocrit 34.9 % (36.0-46.0); Hemoglobin 11.5 g/dL (12.2-16.2); Lymphocytes # (auto) 0.9 10 ^3/uL (0.4-5.4); Lymphocytes % (auto) 18.8 % (10.0-50.0); Mean Corpuscular Hemoglobin 27.4 pg (28.0-32.0); Monocytes # (auto) 0.5 10 ^3/uL (0-1.3); Monocytes % (auto) 9.8 % (0.0-12.0); Neutrophils # (auto) 3.3 10 ^3/uL (1.6-8.6); Neutrophils % (auto) 67.9 % (37.0-80.0); Nucleated Red Blood Cells % 0.1 %; Platelet Count (auto) 338 10^3/uL (140-450); Red Blood Cells 4.21 10^6/uL (4.0-5.20); White Blood Cell 4.9 10^3/uL (4.4-10.8)
[2024-11-24 09:26] VITALS: BP 123/84; PULSE 62; RESP 15; TEMP 97.7; O2SAT 95
== END 2024-11-24 12:25 | disposition home health service (06) | DRG 309 ==
LOC: EDBD 08:58 → ER 08:58 → OVERFLOW 14:32 → TELE-EAST 11-23 18:07
PROVIDERS: ADMIT Internal Medicine; ATTEND Internal Medicine
DX: I48.0 Paroxysmal atrial fibrillation (principal); N39.0 Urinary tract infection, site not specified; E78.5 Hyperlipidemia, unspecified; I25.10 Atherosclerotic heart disease of native coronary artery without angina pectoris; J45.909 Unspecified asthma, uncomplicated; I50.9 Heart failure, unspecified; E11.42 Type 2 diabetes mellitus with diabetic polyneuropathy; I11.0 Hypertensive heart disease with heart failure; Z79.01 Long term (current) use of anticoagulants; Z91.048 Other nonmedicinal substance allergy status; Z90.49 Acquired absence of other specified parts of digestive tract; Z90.710 Acquired absence of both cervix and uterus; Z83.3 Family history of diabetes mellitus; Z82.49 Family history of ischemic heart disease and other diseases of the circulatory system; Z82.3 Family history of stroke; Z86.73 Personal history of transient ischemic attack (TIA), and cerebral infarction without residual deficits; Z79.4 Long term (current) use of insulin
CPT/HCPCS: 36415; 71045; 80048; 80053; 81001; 84484; 85025; 85610; 85730; 87086; 93005; 93306; 97163; 99291; 99292; G0378

== ENCOUNTER 2025-03-13 19:37 | Inpatient (IN) | payer OTHER ==
[~2025-03-13] VITALS: Ht 160 cm; Wt 95.0 kg
[~2025-03-13 19:37] MED LIST changes: -AUG875T PO; +CEFD300C2 PO; -CIPR-173 PO
[2025-03-13] MEDS ORDERED: ASPirin 81 mg TAB PO ONE (20:00)
[2025-03-13 20:22] LABS: Basophils # (auto) 0 10 ^3/uL (0-0.2); Basophils % (auto) 0.8 % (0.0-2.0); Eosinophils # (auto) 0.1 10 ^3/uL (0-0.8); Eosinophils % (auto) 1.5 % (0.0-7.0); Hematocrit 30.7 % (36.0-46.0); Lymphocytes # (auto) 0.9 10 ^3/uL (0.4-5.4); Lymphocytes % (auto) 16.6 % (10.0-50.0); Mean Corpuscular Hemoglobin 28.4 pg (28.0-32.0); Mean Corpuscular Hgb Conc. 32.6 g/dL (32.0-36.0); Mean Corpuscular Volume 87.3 fL (80.0-100.0); Monocytes # (auto) 0.3 10 ^3/uL (0-1.3); Monocytes % (auto) 4.8 % (0.0-12.0); Neutrophils # (auto) 4.3 10 ^3/uL (1.6-8.6); Neutrophils % (auto) 76.3 % (37.0-80.0); Nucleated Red Blood Cells % 0.1 %; Platelet Count (auto) 302 10^3/uL (140-450); Red Blood Cells 3.52 10^6/uL (4.0-5.20); Red Cell Distribution Width 19.4 % (11.8-14.3); White Blood Cell 5.6 10^3/uL (4.4-10.8)
--- NOTE | 2025-03-13 20:25 | ED.PDOC ---
History of Present Illness HPI Comments 69 year old Female was BIB for the c/c of painful swollen throat, and associated sublingual Hematoma. Pt states her throat pain started this morning with slight SOB with no alleviating factors at this time. Pt also notes that she has recently had an elevated INR 2x weeks ago. Pt also notes of /D, and weakness. Pt has a PMHx of DM, and Asthma. Pt denies remembering any trauma, or other associated symptoms, modifiers, recent injuries or sick contacts present at this time. Chief Complaint: Shortness of Breath Time Seen by MD: 20:18 Primary Care Provider: PUNEET Reviewed Notes: Nurses Notes, Medications, Allergies Allergies: Coded Allergies: Glipizide (Unverified Allergy, Severe, 09/08/13) Erythromycin (Unverified Allergy, Intermediate, 09/08/13) Latex (Verified Allergy, Intermediate, RASH, 09/09/13) Gabapentin (Verified Allergy, Unknown, 04/21/19) Uncoded Allergies: TAPE (Allergy, Unknown, 04/21/19) Home Meds Active Scripts Cefdinir (Cefdinir) 300 Mg Cap, 1 CAP PO BID, #10 CAP Prov:MESERET MORGAN MD 11/23/24 Acetaminophen (Acetaminophen) 500 Mg Tab, 500 MG PO Q4HP PRN, #20 TAB Prov:CHRIS HARRINGTON PAC 01/21/24 Metoprolol Tartrate (LOPRESSOR TABLET) 50 Mg Tb, 100 MG GT BID, #60 Prov:MESERET MORGAN MD 10/29/15 Warfarin Sodium (Coumadin) 5 Mg Tab, 1 TAB PO DAILY for 7 Days, TAB 1 Refill Prov:MESERET MORGAN MD 10/29/15 Reported Medications Duloxetine Hcl (Cymbalta) 60 Mg Cap, 60 MG PO BID, CAP 11/06/23 Insulin Glargine (Lantus) 100 Units/Ml Vial, 55 UNITS SC DAILY, #30 10/27/15 Insulin Lispro (Human) (Humalog) 100 Mg/Ml Inj, 8 BOTTLE SC AC, #30 10/27/15 Metformin Hydrochloride (Glumetza) 500 Mg Tab, 1 PO BID, #180 10/27/15 Atorvastatin Calcium (ATORVASTATIN CALCIUM) 20 Mg Tab, 1 PO HS, #90 10/27/15 Losartan Potassium (COZAAR TABLET) 50 Mg Tb, 1 PO BID, #180 10/27/15 Furosemide (Furosemide) 20 Mg Tab, 1 PO DAILY, #90 10/27/15 Amlodipine Besylate (Amlodipine Besylate) 2.5 Mg Tab, 1 PO BID, #180 10/27/15 Levothyroxine Sodium (Levothyroxine Sodium) 50 Mcg Tab, 1 PO, #90 10/27/15 Information Source: Patient, Friend Mode of Arrival: Wheelchair Severity: Moderate Timing: Days Duration: Since onset, Days Prehospital treatment: None Vital Signs Vital Signs Date Time Temp Pulse Resp B/P (MAP) Pulse Ox O2 Delivery O2 Flow Rate FiO2 03/14/25 00:36 63 16 96 Room Air* 0 21 03/14/25 00:35 97.5 157/65 (95) 97.5 Physical Exam General: Awake, alert and oriented. No acute distress. Skin: Skin in warm, dry and intact. Appropriate color for ethnicity. HEENT: The head is normocephalic and atraumatic. Conjunctivae are clear without exudates or hemorrhage. Sclera is non-icteric. EOM are intact. No signs of nystagmus. Eyelids are normal in appearance without swelling or lesions. Oral m ucosa is pink and moist, Sublingual Hematoma Noted, uvula is midline, no uvular swelling, pharyngeal erythema or edema. Neck: The neck is supple with normal range of motion. No JVD. Cardiac: Heart rate and rhythm are normal. No murmurs, gallops, or rubs are auscultated. Respiratory: No signs of respiratory distress. Lung sounds are clear in all lobes bilaterally without rales, rhonchi, or wheezes. No stridor. Abdominal: Abdomen is soft, non-tender without distention, guarding or rigidity. Bowel sounds are present and normoactive in all four quadrants. Extremities: Upper and lower extremities are atraumatic in appearance without deformity or edema. Neurological: The patient is awake, alert and oriented to person, place, and time with normal speech. Speech is clear. There is no facial asymmetry. Weakness noted Psychiatric: Appropriate mood and affect. Good judgement and insight. Review of Systems: REVIEW OF SYSTEMS: No fever, no chills, + Weakness HEENT: + sore throat, no earache, no congestion, no neck pain. Sublingual hematoma Cardiac: No chest pain. No palpitations. Lungs: + shortness of breath, no cough. GI: No nausea, no vomiting, no constipation, no abdominal pain : No dysuria, frequency, or urgency. No hematuria. Musculoskeletal: No joint pain , no joint swelling, no extremity edema. Skin: No rash, no itching. 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 Was a procedure done?: No Differential Dx Considerations may include: Pharyngitis, pharyngeal abscess, pharyngeal hematoma, coagulopathy, congestive heart failure, acute coronary syndrome, pneumonia, other X-Ray, Labs, Meds, VS Vital Signs Date Time Temp Pulse Resp B/P (MAP) Pulse Ox O2 Delivery O2 Flow Rate FiO2 03/14/25 00:36 63 16 96 Room Air* 0 21 03/14/25 00:35 97.5 63 18 157/65 (95) 96 97.5 03/13/25 19:50 98.9 74 20 157/84 (108) 94 98.9 Lab Test 03/14/25 03:30 03/13/25 23:06 03/13/25 21:05 03/13/25 20:10 Range/Units Prothrombin Time 9.3-11.8 sec Prothrombin Time INR > 8.0 *H > 8.0 *H 0.9-1.15 Troponin I High Sensitivity 6 6 5 </=34 ng/L White Blood Count 5.6 4.4-10.8 10^3/uL Red Blood Count 3.52 L 4.0-5.20 10^6/uL Hemoglobin 10.0 L 12.2-16.2 g/dL Hematocrit 30.7 L 36.0-46.0 % Mean Corpuscular Volume 87.3 80.0-100.0 fL Mean Corpuscular Hemoglobin 28.4 28.0-32.0 pg Mean Corpuscular Hemoglobin Concent 32.6 32.0-36.0 g/dL Red Cell Distribution Width 19.4 H 11.8-14.3 % Platelet Count 302 140-450 10^3/uL Mean Platelet Volume 7.2 6.9-10.8 fL Neutrophils (%) (Auto) 76.3 37.0-80.0 % Lymphocytes (%) (Auto) 16.6 10.0-50.0 % Monocytes (%) (Auto) 4.8 0.0-12.0 % Eosinophils (%) (Auto) 1.5 0.0-7.0 % Basophils (%) (Auto) 0.8 0.0-2.0 % Neutrophils # (Auto) 4.3 1.6-8.6 10 ^3/uL Lymphocytes # (Auto) 0.9 0.4-5.4 10 ^3/uL Monocytes # (Auto) 0.3 0-1.3 10 ^3/uL Eosinophils # (Auto) 0.1 0-0.8 10 ^3/uL Basophils # (Auto) 0 0-0.2 10 ^3/uL Nucleated Red Blood Cells 0.1 % Sodium Level 143 136-145 mmol/L Potassium Level 3.5 3.5-5.1 mmol/L Chloride Level 109 H 98-107 mmol/L Carbon Dioxide Level 25 20-31 mmol/L Anion Gap 9 5-15 Blood Urea Nitrogen 12 9-23 mg/dL Creatinine 0.97 0.550-1.02 mg/dL Glomerular Filtration Rate Calc 62 >90 mL/min BUN/Creatinine Ratio 12.4 10.0-20.0 Serum Glucose 111 H 74-106 mg/dL Calcium Level 9.7 8.7-10.4 mg/dL Total Bilirubin 0.8 0.2-1.0 mg/dL Aspartate Amino Transferase (AST) 41 H 13-40 U/L Alanine Aminotransferase (ALT) 61 H 7-40 U/L Alkaline Phosphatase 68 46-116 U/L B-Type Natriuretic Peptide 42.44 0-100 pg/mL Total Protein 6.5 5.7-8.2 g/dL Albumin 4.3 3.2-4.8 g/dL Current Medications Medications (Trade) Dose Ordered Sig/Pee Route Start Time Stop Time Status Last Admin Acetaminophen/ Hydrocodone Bitart (Leming 5/325MG Tab) 1 tab ONCE ONCE PO 03/13/25 20:15 03/13/25 20:16 DC 03/13/25 21:11 Phytonadione (vitamin K) 5 mg ONCE ONCE SUBCUT 03/14/25 00:30 03/14/25 00:31 DC 03/14/25 00:34 Phytonadione 5 mg/ Sodium Chloride 50.5 ml @ 202 mls/hr ONCE ONCE IV 03/14/25 01:30 03/14/25 02:14 DC 03/14/25 04:37 PATIENT: HYUN AMANDA ACCT: [id number] UNIT: [id number] : 1955 LOC: ER ROOM / BED: / AGE / SEX: 69 / F ADM STATUS: REG ER SERVICE 99 ORDERING PHYSICIAN: SUNI CASTILLO MD PROCEDURE(s): CXR1 - CHEST XRAY 1 VIEW REASON: cp ORDER NUMBER(s): [id number], ACCESSION NUMBER(s): [id number] CHEST RADIOGRAPH Indication: cp Technique: Single frontal view of the chest was obtained Comparison: XY CHEST PORTABLE on DOS: 11/22/24, XY CHEST PORTABLE on DOS: 06/01/24, XY CHEST PORTABLE on DOS: 12/31/23 FINDINGS: Lines and Tubes: None Lungs: No focal consolidation. Pleura: No effusion. No pneumothorax. Cardiomediastinal contours: Unremarkable Bones: No acute osseous abnormality. IMPRESSION: 1. No acute cardiopulmonary disease. ENT: HYUN AMANDA ACCT: [id number] UNIT: [id number] : 1955 LOC: ER ROOM / BED: / AGE / SEX: 69 / F ADM STATUS: REG ER SERVICE 0032 ORDERING PHYSICIAN: DEAN GAYLE METEOROLOGY PROFESSOR PROCEDURE(s): NKICT - NECK WITHOUT CONTRAST REASON: swollen neck ORDER NUMBER(s): [id number], ACCESSION NUMBER(s): [id number] EXAM: CT NECK WITHOUT CONTRAST INDICATION: swollen neck Exam Date: 03/14/2025 12:34 AM COMPARISON: None TECHNIQUE: CT of the neck without intravenous contrast. RADIATION DOSE: CTDIvol: 21.86 mGy, DLP: 618.57 mGy*cm FINDINGS: There is no evidence of cervical mass lesion, pathologically enlarged lymph nodes or fluid collection. The fat planes of the neck appear intact. The airway and larynx are unremarkable. The parotid, submandibular and thyroid glands are unremarkable. The vascular structures of the neck appear patent. The visualized lung apices are clear. The limited visualized portions of the brain are unremarkable. The osseous structures are unremarkable. IMPRESSION: 1. No evidence of cervical mass lesion, pathologically enlarged lymph nodes or fluid collection. Time of 1ST Reevaluation: 20:48 Reevaluation 1ST: Unchanged Patient Education/Counseling: Need For Follow Up Family Education/Counseling: Need For Follow Up Departure 1 Departure Time of Disposition: 23:42 Impression: Primary Impression: Supratherapeutic INR Disposition: ADMITTED INPATIENT Condition: Stable Comments 69-year-old female who presents with shortness of breath and sublingual hematoma. Patient's INR found to be supratherapeutic at greater than 8. Patient only has symptom of sublingual hematoma which has been stable, not enlarging during the ED observation. 5 mg vitamin K administered subcutaneously. Case was discussed with hospitalist. Patient admitted to hospitalist service for further treatment, evaluation and monitoring. Critical Care Note Critical Care Time?: No Stability Stability form required: No I personally scribed for SUNI CASTILLO MD ([email or web address]) on 03/13/25 at 20:25. Electronically submitted by Wilner Tijerina ([email or web address]). I personally scribed for SUNI CASTILLO MD ([email or web address]) on 03/13/25 at 20:45. Electronically submitted by Wilner Tijerina ([email or web address]). I personally scribed for SUNI CASTILLO MD ([email or web address]) on 03/13/25 at 20:52. Electronically submitted by Wilner Tijerina ([email or web address]). I personally scribed for SUNI CASTILLO MD ([email or web address]) on 03/14/25 at 04:30. Electronically submitted by Wilner Tijerina ([email or web address]). SUNI CASTILLO MD Mar 13, 2025 20:25
[2025-03-13 20:40] LABS: Albumin 4.3 g/dL (3.2-4.8); Alkaline Phosphatase 68 U/L (46-116); Anion Gap 9 (5-15); BUN/Creatinine Ratio 12.4 (10.0-20.0); Blood Urea Nitrogen 12 mg/dL (9-23); Calcium 9.7 mg/dL (8.7-10.4); Carbon Dioxide 25 mmol/L (20-31); Potassium 3.5 mmol/L (3.5-5.1); Sodium 143 mmol/L (136-145); Total Protein 6.5 g/dL (5.7-8.2)
[2025-03-13 20:41] LABS: Bilirubin, Total 0.8 mg/dL (0.2-1.0)
--- NOTE | 2025-03-13 20:41 | DVH ---
CHEST RADIOGRAPH Indication: cp Technique: Single frontal view of the chest was obtained Comparison: XY CHEST PORTABLE on DOS: 11/22/24, XY CHEST PORTABLE on DOS: 06/01/24, XY CHEST PORTABLE o n DOS: 12/31/23 FINDINGS: Lines and Tubes: None Lungs: No focal consolidation. Pleura: No effusion. No pneumothorax. Cardiomediastinal contours: Unremarkable Bones: No acute osseous abnormality. IMPRESSION: 1. No acute cardiopulmonary disease.
[2025-03-13 20:46] LABS: Alanine Aminotransferase 61 U/L (7-40); Aspartate Aminotransferase 41 U/L (13-40); Chloride 109 mmol/L (98-107); Glucose 111 mg/dL (74-106)
[2025-03-13] MEDS: HYDROcodone-ACET 5/325MG TAB PO ONE (21:11)
[2025-03-13 23:41] LABS: INR > 8.0 (0.9-1.15)
[2025-03-14] VITALS (15 sets, daily range): BP systolic 130–154; BP diastolic 56–77; PULSE 60–76; RESP 13–18; TEMP 96.5–98; O2SAT 92–98
[2025-03-14] MEDS ORDERED: PHYTONADIONE(VitK) ORAL Susp 5mg/5ml(1mg/ml) PO ONE
[2025-03-14] MEDS: phytonadione 1 ML ONE (00:34)
[2025-03-14] MEDS: PHYTONADIONE (VIT K)10 MG/ML 1ML VIAL SUBCUT ONE (00:34)
[2025-03-14] MEDS ORDERED: PHYTONADIONE (VIT K)10 MG/ML 1ML VIAL SUBCUT ONE (01:30)
--- NOTE | 2025-03-14 03:42 | DVH ---
EXAM: CT NECK WITHOUT CONTRAST INDICATION: swollen neck Exam Date: 03/14/2025 12:34 AM COMPARISON: None TECHNIQUE: CT of the neck without intravenous contrast. RADIATION DOSE: CTDIvol: 21.86 mGy, DLP: 618.57 mGy*cm FINDINGS: There is no evidence of cervical mass lesion, pathologically enlarged lymph nodes or fluid collection . The fat planes of the neck appear intact. The airway and larynx are unremarkable. The parotid, submandibular and thyroid glands are unremarkable. The vascular structures of the neck appear patent. The visualized lung apices are clear. The limited visualized portions of the brain are unremarkable. The osseous structures are unremarkable. IMPRESSION: 1. No evidence of cervical mass lesion, pathologically enlarged lymph nodes or fluid collection.
--- NOTE | 2025-03-14 04:15 | DVHHP2 ---
Admitting Diagnosis: Supratherapeutic INR, Sublingual Hematoma History of Present Illness History Source: Patient Exam Limitations: No limitations HPI Mrs. Juanita Mcpherson is a 69 year old Female with a history of DM, Asthma, A fib on Warfarin, ACS, [place] with stent placement x 10 years ago, presents with a chief complaint of painful swollen throat, and associated sublingual Hematoma. Pt states her throat pain started yesterday morning with mild shortness of breath with no alleviating factors. Patient also notes that she has recently had an elevated INR 2x weeks ago and has had her Warfarin adjusted by her Doctor, patient reports last dose of Warfarin was last night of 3mg. Patient denies any trauma, or other associated symptoms, modifiers, recent injuries or sick contacts present at this time. Patient found to have an INR of 8.0. Patient admitted for close evaluation and treatment. Home Meds Active Scripts Cefdinir (Cefdinir) 300 Mg Cap, 1 CAP PO BID, #10 CAP Prov:MESERET MORGAN MD 11/23/24 Acetaminophen (Acetaminophen) 500 Mg Tab, 500 MG PO Q4HP PRN, #20 TAB Prov:CRHIS HARRINGTON PAC 01/21/24 Metoprolol Tartrate (LOPRESSOR TABLET) 50 Mg Tb, 100 MG GT BID, #60 Prov:MESERET MORGAN MD 10/29/15 Warfarin Sodium (Coumadin) 5 Mg Tab, 1 TAB PO DAILY for 7 Days, TAB 1 Refill Prov:MESERET MORGAN MD 10/29/15 Reported Medications Duloxetine Hcl (Cymbalta) 60 Mg Cap, 60 MG PO BID, CAP 11/06/23 Insulin Glargine (Lantus) 100 Units/Ml Vial, 55 UNITS SC DAILY, #30 10/27/15 Insulin Lispro (Human) (Humalog) 100 Mg/Ml Inj, 8 BOTTLE SC AC, #30 10/27/15 Metformin Hydrochloride (Glumetza) 500 Mg Tab, 1 PO BID, #180 10/27/15 Atorvastatin Calcium (ATORVASTATIN CALCIUM) 20 Mg Tab, 1 PO HS, #90 10/27/15 Losartan Potassium (COZAAR TABLET) 50 Mg Tb, 1 PO BID, #180 10/27/15 Furosemide (Furosemide) 20 Mg Tab, 1 PO DAILY, #90 10/27/15 Amlodipine Besylate (Amlodipine Besylate) 2.5 Mg Tab, 1 PO BID, #180 10/27/15 Levothyroxine Sodium (Levothyroxine Sodium) 50 Mcg Tab, 1 PO, #90 10/27/15 Past Medical History Cardiac: AFIB, [place] Pulmonary: Asthma Central Nervous System: No pertinent Hx GI: No pertinent Hx Hemotology/Oncology: No pertinent Hx Hepatobiliary: No pertinent Hx Psychiatric: No pertinent Hx Musculoskeletal: No pertinent Hx Rheumotologic: No pertinent Hx Infectious Disease: No peritnent Hx ENT: No pertinent Hx Renal/: No pertinent Hx Endocrine: NIDDM Dermatology: No pertinent Hx Patient Family History: Cancer G8 MOTHER Family history: Diabetes mellitus G8 MOTHER G8 FATHER Family history: Hypercholesterolemia (situation) G8 MOTHER Family history: Hypertension G8 MOTHER G8 FATHER Smoker: No Hx (Negative) Alocohol: None Drugs: None Lives with: With family Domestic Violence: Neg Review of Systems Constitutional: No symptom reported Ears, Nose, & Throat: Throat pain, Other (sublingual hematoma) Eyes: No symptom reported Pulmonary/Respiratory: Dyspnea Cardiovascular: No symptom reported Gastrointestinal: No symptom reported Genitourinary: No symptom reported Musculoskeletal: No symptom reported Skin: No symptom reported Psychiatric: No symptom reported Endocrine: No symptom reported Hemotologic/Lymphatic: No symptom reported H&P Exam Vital Signs Vital Signs Date Time Temp Pulse Resp B/P (MAP) Pulse Ox O2 Delivery O2 Flow Rate FiO2 03/14/25 00:36 63 16 96 Room Air* 0 21 03/14/25 00:35 97.5 157/65 (95) 97.5 General Appeara: Well developed, Well nourished, Normal Appearance Head Exam: Normal inspection Neck Exam: Normal inspection, Non-tender, Normal alignment Eye Exam: bilateral eye Normal inspection, bilateral eye PERRL, bilateral eye EOMI Ear Exam: bilateral ear Auricle normal Nasal Exam: Normal inspection Mouth: Normal Inspection (sublingual hematoma) Pulmonary/Respiratory: Normal inspection, Normal breath sounds, Chest non- tender, Lungs clear Cardiovascular/Chest: Normal inspection, Regular rate, Irregularly irregular Peripheral Pulses: 2+ dorsalis pedis (R), 2+ dorsalis pedis (L), 2+ Radial (R), 2+ Radial (L) Abdominal Exam: Normal bowel sounds, Soft, No tenderness Rectal Exam: Deferred Back Exam: Normal inspection Pelvic Exam: Not done Tendon/ Neuro: Normal sensation [employer]IST Exam: Normal hearing, Normal speech, PERRL Motor/Sensory: Normal sensory function, Normal motor function Appearance: Appropriate appearance, Appropriate insight Eye contact/ Speech: Cooperative, Good eye contact, Normal speech Skin Exam: Normal inspection, Normal color, Warm/dry Labs/Xrays Labs Test 03/14/25 03:30 03/13/25 23:06 03/13/25 20:10 Range/Units Troponin I High Sensitivity 6 </=34 ng/L White Blood Count 5.6 4.4-10.8 10^3/uL Red Blood Count 3.52 L 4.0-5.20 10^6/uL Hemoglobin 10.0 L 12.2-16.2 g/dL Hematocrit 30.7 L 36.0-46.0 % Mean Corpuscular Volume 87.3 80.0-100.0 fL Mean Corpuscular Hemoglobin 28.4 28.0-32.0 pg Mean Corpuscular Hemoglobin Concent 32.6 32.0-36.0 g/dL Red Cell Distribution Width 19.4 H 11.8-14.3 % Platelet Count 302 140-450 10^3/uL Mean Platelet Volume 7.2 6.9-10.8 fL Neutrophils (%) (Auto) 76.3 37.0-80.0 % Lymphocytes (%) (Auto) 16.6 10.0-50.0 % Monocytes (%) (Auto) 4.8 0.0-12.0 % Eosinophils (%) (Auto) 1.5 0.0-7.0 % Basophils (%) (Auto) 0.8 0.0-2.0 % Neutrophils # (Auto) 4.3 1.6-8.6 10 ^3/uL Lymphocytes # (Auto) 0.9 0.4-5.4 10 ^3/uL Monocytes # (Auto) 0.3 0-1.3 10 ^3/uL Eosinophils # (Auto) 0.1 0-0.8 10 ^3/uL Basophils # (Auto) 0 0-0.2 10 ^3/uL Nucleated Red Blood Cells 0.1 % Sodium Level 143 136-145 mmol/L Potassium Level 3.5 3.5-5.1 mmol/L Chloride Level 109 H 98-107 mmol/L Carbon Dioxide Level 25 20-31 mmol/L Anion Gap 9 5-15 Blood Urea Nitrogen 12 9-23 mg/dL Creatinine 0.97 0.550-1.02 mg/dL Glomerular Filtration Rate Calc 62 >90 mL/min BUN/Creatinine Ratio 12.4 10.0-20.0 Serum Glucose 111 H 74-106 mg/dL Calcium Level 9.7 8.7-10.4 mg/dL Total Bilirubin 0.8 0.2-1.0 mg/dL Aspartate Amino Transferase (AST) 41 H 13-40 U/L Alanine Aminotransferase (ALT) 61 H 7-40 U/L Alkaline Phosphatase 68 46-116 U/L B-Type Natriuretic Peptide 42.44 0-100 pg/mL Total Protein 6.5 5.7-8.2 g/dL Albumin 4.3 3.2-4.8 g/dL Assessment/Plan Problem List: (1) Supratherapeutic INR (2) Hematoma Plan This is a 69 yo female with known history of DM, Asthma, A fib on Comadin, ACS, [place] with stent placement, supplemental home oxygen as needed who presents to the hospital with shortness of breath and hematoma under tongue , patient found to have 1. Supratherapeutic INR 2. Sublingual Hematoma 3. Atrial fibrillation 4. DM 5. Asthma 6. hx ACS/KS Plan Admit KATELIN Patient was administered vitamin K total of 10 mg in ED Monitor PT/INR Aspiration precautions Fall precautions Hold anticoagulation for now Monitor closely for bleeding Supplemental oxygen as needed to keep 02 saturations above 92% EKG Discussed all above with patient who verbalizes agreement and understanding of care plan. All questions were answered. Discussed with supervising MD. Plan discussed with: Patient, Other Code Visit Code Visit Total Time (mins): 45 Additional Comments Additional Comments Additional Comments 69-year-old female with a known history of diabetes mellitus type 2, chronic A Fib currently on Coumadin, chronic asthma, known CAD status post PCI, chronic respiratory failure on home O2 initially presented to the hospital with shortness breath and tongue hematoma found to have 1. Supratherapeutic INR 2. Sublingual hematoma 3. Chronic AFib 4. Diabetes mellitus type 2 5. CAD status post PCI 6. Chronic asthma 7. Chronic respiratory failure on home O2. -patient is status post vitamin K currently INR is subtherapeutic, resume Coumadin per pharmacy, watch for sublingual hematoma. -patient is currently understand verbalized understanding and agreeable to plan. DEAN GAYLE Mar 14, 2025 04:14 MESERET MORGAN MD Mar 14, 2025 18:16
[2025-03-14] MEDS: phytonadione 5 MG in SODIUM CHL 0.9% 50 ML IV ONE (04:37)
[2025-03-14] MEDS ORDERED: ACETAMINOPHEN 650 mg PER 20.3 mL UD PO PRN (05:00)
[2025-03-14] MEDS ORDERED: ONDANSETRON HCL 4 MG/2 ML VIAL IV PRN (05:00)
[2025-03-14] MEDS ORDERED: hydrALAZINE HCL 20 MG/ML VL IV PRN (05:00)
[2025-03-14 05:10] LABS: INR > 8.0 (0.9-1.15)
[2025-03-14 08:36] LABS: Prothrombin Time 40.8 sec (9.3-11.8)
[2025-03-14 08:56] LABS: INR 4.46 (0.9-1.15)
[2025-03-14 12:36] LABS: INR 1.88 (0.9-1.15); Prothrombin Time 18.7 sec (9.3-11.8)
[2025-03-14 16:30] LABS: INR 1.48 (0.9-1.15); Prothrombin Time 15.1 sec (9.3-11.8)
[2025-03-14] MEDS: WARFARIN SODIUM 2 MG TAB PO ONE (16:58)
[2025-03-15] VITALS (10 sets, daily range): BP systolic 120–150; BP diastolic 60–75; PULSE 60–81; RESP 15–18; TEMP 97.8–98.5; O2SAT 95–99
[2025-03-15 05:44] LABS: Basophils # (auto) 0 10 ^3/uL (0-0.2); Basophils % (auto) 0.5 % (0.0-2.0); Eosinophils # (auto) 0.1 10 ^3/uL (0-0.8); Eosinophils % (auto) 1.6 % (0.0-7.0); Hematocrit 27.5 % (36.0-46.0); Hemoglobin 9.2 g/dL (12.2-16.2); Lymphocytes # (auto) 0.7 10 ^3/uL (0.4-5.4); Lymphocytes % (auto) 15.3 % (10.0-50.0); Mean Corpuscular Hemoglobin 28.9 pg (28.0-32.0); Mean Corpuscular Hgb Conc. 33.4 g/dL (32.0-36.0); Mean Corpuscular Volume 86.5 fL (80.0-100.0); Monocytes # (auto) 0.3 10 ^3/uL (0-1.3); Monocytes % (auto) 7.6 % (0.0-12.0); Neutrophils # (auto) 3.4 10 ^3/uL (1.6-8.6); Nucleated Red Blood Cells % 0.1 %; Platelet Count (auto) 272 10^3/uL (140-450); Red Blood Cells 3.17 10^6/uL (4.0-5.20); White Blood Cell 4.6 10^3/uL (4.4-10.8)
[2025-03-15 07:57] LABS: INR 1.13 (0.9-1.15); Partial Thromboplastin Time 30.3 SEC (24.5-34.5); Prothrombin Time 11.8 sec (9.3-11.8)
--- NOTE | 2025-03-15 16:36 | DVHPN2 ---
Subjective Overnight events noted. Patient's Coumadin will be discontinued started on Eliquis we will follow up Cardiology recommendations as well. 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 Medications Current Medications Medications Dose Ordered Sig/Pee Route Start Time Stop Time Status Last Admin Dose Admin Ondansetron HCl 4 mg Q6HPRN PRN IV 03/14/25 05:00 Acetaminophen 650 mg Q6HPRN PRN PO 03/14/25 05:00 Hydralazine HCl 10 mg Q6HP PRN IV 03/14/25 05:00 Patient Own Medication 5 mg BIDPC PO 03/15/25 19:00 UNV Apixaban 5 mg BIDPC PO 03/15/25 19:00 Laboratory Results Laboratory Tests 03/13/25 20:10 03/15/25 05:21 Coagulation Test 03/15/25 06:59 Prothrombin Time 11.8 sec (9.3-11.8) Prothrombin Time INR 1.13 (0.9-1.15) Activated Partial Thromboplast Time 30.3 SEC (24.5-34.5) Assessment/Plan Assessment/Plan 69-year-old female with a known history of diabetes mellitus type 2, chronic AFib currently on Coumadin, chronic asthma, known CAD status post PCI, chronic respiratory failure on home O2 initially presented to the hospital with shortness breath and tongue hematoma found to have 1. Supratherapeutic INR, currently subtherapeutic 2. Sublingual hematoma 3. Chronic AFib 4. Diabetes mellitus type 2 5. CAD status post PCI 6. Chronic asthma 7. Chronic respiratory failure on home O2. -discontinue Coumadin, start Eliquis, follow up Cardiology recommendations. Plan discussed with: Patient, Spouse My Orders Orders - MESERET MORGAN MD Procedure Category Date Status Time * Cardiology Consult CONS 03/15/25 Transmitted 13:41 Apixaban (Eliquis) PHA 03/15/25 In Process 19:00 Date of Service: Mar 15, 2025 Billing Provider: MESERET MORGAN MD Common Visit Codes: NOT BILLABLE MESERET MORGAN MD Mar 15, 2025 16:36
[2025-03-15] MEDS ORDERED: WARFARIN SODIUM 2 MG TAB PO ONE (17:00)
--- NOTE | 2025-03-15 17:06 | DVHINCON2 ---
Date of service: Mar 15, 2025 History of Present Illness HPI Mrs. Juanita Mcpherson is a 69 year old Female with a history of DM, Asthma, A fib on Warfarin, ACS, [place] with stent placement x 10 years ago, presents with a chief complaint of painful swollen throat, and associated sublingual Hematoma. Pt states her throat pain started yesterday morning with mild shortness of breath with no alleviating factors. Patient also notes that she has recently had an elevated INR 2x weeks ago and has had her Warfarin adjusted by her Doctor, patient reports last dose of Warfarin was last night of 3mg. Patient denies any trauma, or other associated symptoms, modifiers, recent injuries or sick contacts present at this time. Patient found to have an INR of 8.0. Patient admitted for close evaluation and treatment. Past Medical History reviewed Family History: Cancer G8 MOTHER Family history: Diabetes mellitus G8 MOTHER G8 FATHER Family history: Hypercholesterolemia (situation) G8 MOTHER Family history: Hypertension G8 MOTHER G8 FATHER Allergies: Coded Allergies: Glipizide (Unverified Allergy, Severe, 09/08/13) Erythromycin (Unverified Allergy, Intermediate, 09/08/13) Latex (Verified Allergy, Intermediate, RASH, 09/09/13) Gabapentin (Verified Allergy, Unknown, 04/21/19) Uncoded Allergies: TAPE (Allergy, Unknown, 04/21/19) Home Meds Active Scripts Cefdinir (Cefdinir) 300 Mg Cap, 1 CAP PO BID, #10 CAP Prov:MESERET MORGAN MD 11/23/24 Acetaminophen (Acetaminophen) 500 Mg Tab, 500 MG PO Q4HP PRN, #20 TAB Prov:CHRIS HARRINGTON 01/21/24 Metoprolol Tartrate (LOPRESSOR TABLET) 50 Mg Tb, 100 MG GT BID, #60 Prov:MESERET MORGAN MD 10/29/15 Warfarin Sodium (Coumadin) 5 Mg Tab, 1 TAB PO DAILY for 7 Days, TAB 1 Refill Prov:MESERET MORGAN MD 10/29/15 Reported Medications Duloxetine Hcl (Cymbalta) 60 Mg Cap, 60 MG PO BID, CAP 11/06/23 Insulin Glargine (Lantus) 100 Units/Ml Vial, 55 UNITS SC DAILY, #30 10/27/15 Insulin Lispro (Human) (Humalog) 100 Mg/Ml Inj, 8 BOTTLE SC AC, #30 10/27/15 Metformin Hydrochloride (Glumetza) 500 Mg Tab, 1 PO BID, #180 10/27/15 Atorvastatin Calcium (ATORVASTATIN CALCIUM) 20 Mg Tab, 1 PO HS, #90 10/27/15 Losartan Potassium (COZAAR TABLET) 50 Mg Tb, 1 PO BID, #180 10/27/15 Furosemide (Furosemide) 20 Mg Tab, 1 PO DAILY, #90 10/27/15 Amlodipine Besylate (Amlodipine Besylate) 2.5 Mg Tab, 1 PO BID, #180 10/27/15 Levothyroxine Sodium (Levothyroxine Sodium) 50 Mcg Tab, 1 PO, #90 10/27/15 Current Medications Current Medications Medications (Trade) Dose Ordered Sig/Pee Route PRN Reason Start Time Stop Time Status Last Admin Patient Own Medication 5 mg BIDPC PO 03/15/25 19:00 UNV Apixaban (Eliquis) 5 mg BIDPC PO 03/15/25 19:00 Review of Systems 10 pt ros otherwise negative Vital Signs Vital Signs Date Time Temp Pulse Resp B/P (MAP) Pulse Ox O2 Delivery O2 Flow Rate FiO2 03/15/25 08:45 98.1 62 16 137/73 (94) 99 98.1 03/15/25 08:00 Nasal Cannula* 2 28 Physical Exam nad s1 s2 irregular ctab soft nt/nd no edeam Labs/Diagnostic Data Labs Test 03/15/25 06:59 03/15/25 05:21 03/13/25 23:06 03/13/25 20:10 Range/Units Prothrombin Time 11.8 9.3-11.8 sec Prothrombin Time INR 1.13 0.9-1.15 Activated Partial Thromboplast Time 30.3 24.5-34.5 SEC White Blood Count 4.6 4.4-10.8 10^3/uL Red Blood Count 3.17 L 4.0-5.20 10^6/uL Hemoglobin 9.2 L 12.2-16.2 g/dL Hematocrit 27.5 #L 36.0-46.0 % Mean Corpuscular Volume 86.5 80.0-100.0 fL Mean Corpuscular Hemoglobin 28.9 28.0-32.0 pg Mean Corpuscular Hemoglobin Concent 33.4 32.0-36.0 g/dL Red Cell Distribution Width 19.0 H 11.8-14.3 % Platelet Count 272 140-450 10^3/uL Mean Platelet Volume 7.1 6.9-10.8 fL Neutrophils (%) (Auto) 75.0 37.0-80.0 % Lymphocytes (%) (Auto) 15.3 10.0-50.0 % Monocytes (%) (Auto) 7.6 0.0-12.0 % Eosinophils (%) (Auto) 1.6 0.0-7.0 % Basophils (%) (Auto) 0.5 0.0-2.0 % Neutrophils # (Auto) 3.4 1.6-8.6 10 ^3/uL Lymphocytes # (Auto) 0.7 0.4-5.4 10 ^3/uL Monocytes # (Auto) 0.3 0-1.3 10 ^3/uL Eosinophils # (Auto) 0.1 0-0.8 10 ^3/uL Basophils # (Auto) 0 0-0.2 10 ^3/uL Nucleated Red Blood Cells 0.1 % Troponin I High Sensitivity 6 </=34 ng/L Sodium Level 143 136-145 mmol/L Potassium Level 3.5 3.5-5.1 mmol/L Chloride Level 109 H 98-107 mmol/L Carbon Dioxide Level 25 20-31 mmol/L Anion Gap 9 5-15 Blood Urea Nitrogen 12 9-23 mg/dL Creatinine 0.97 0.550-1.02 mg/dL Glomerular Filtration Rate Calc 62 >90 mL/min BUN/Creatinine Ratio 12.4 10.0-20.0 Serum Glucose 111 H 74-106 mg/dL Calcium Level 9.7 8.7-10.4 mg/dL Total Bilirubin 0.8 0.2-1.0 mg/dL Aspartate Amino Transferase (AST) 41 H 13-40 U/L Alanine Aminotransferase (ALT) 61 H 7-40 U/L Alkaline Phosphatase 68 46-116 U/L B-Type Natriuretic Peptide 42.44 0-100 pg/mL Total Protein 6.5 5.7-8.2 g/dL Albumin 4.3 3.2-4.8 g/dL Assessment chronic afib coagulopathy hx of cad s/p pci 2013 htn hl Plan/Recommendation treat elevated INR primary hospitalist plans to change from coumadin to DOAC, this seems quite appropriate htn hl consider statin for hx of pci/ hematoma-monitor per primary Plan discussed with: Patient LILIA BLACKWELL MD Mar 15, 2025 17:06
[2025-03-15] MEDS: APIXABAN 5 MG TAB PO SCH (18:22)
[2025-03-15] MEDS ORDERED: PATIENTS OWN MEDICATION (Eliquis 5 MG) PO SCH (19:00)
[2025-03-16 01:00] VITALS: BP 135/72; PULSE 62; RESP 16; TEMP 97.1; O2SAT 92
[2025-03-16 04:55] VITALS: BP 144/76; PULSE 62; RESP 16; TEMP 97.2; O2SAT 95
[2025-03-16 05:30] LABS: Basophils # (auto) 0 10 ^3/uL (0-0.2); Basophils % (auto) 0.6 % (0.0-2.0); Eosinophils # (auto) 0.1 10 ^3/uL (0-0.8); Hematocrit 27.6 % (36.0-46.0); Hemoglobin 9.1 g/dL (12.2-16.2); Lymphocytes # (auto) 0.8 10 ^3/uL (0.4-5.4); Mean Corpuscular Hemoglobin 28.8 pg (28.0-32.0); Mean Corpuscular Hgb Conc. 32.9 g/dL (32.0-36.0); Mean Corpuscular Volume 87.5 fL (80.0-100.0); Monocytes # (auto) 0.4 10 ^3/uL (0-1.3); Monocytes % (auto) 11.2 % (0.0-12.0); Neutrophils # (auto) 2.2 10 ^3/uL (1.6-8.6); Neutrophils % (auto) 62.2 % (37.0-80.0); Nucleated Red Blood Cells % 0.9 %; Platelet Count (auto) 275 10^3/uL (140-450); Red Blood Cells 3.16 10^6/uL (4.0-5.20); Red Cell Distribution Width 19.2 % (11.8-14.3); White Blood Cell 3.5 10^3/uL (4.4-10.8)
[2025-03-16 08:00] VITALS: PULSE 60
[2025-03-16 09:00] VITALS: BP 140/70; PULSE 62; RESP 16; TEMP 97.9; O2SAT 94
[2025-03-16 13:00] VITALS: BP 133/71; PULSE 61; RESP 16; TEMP 97.9; O2SAT 99
[2025-03-16] MEDS ORDERED: APIX5TAB PO (13:17)
--- NOTE | 2025-03-16 14:47 | DVHDS2 ---
Discharge Summary Date of Admission Mar 14, 2025 at 04:07 Date of Discharge: Mar 16, 2025 Labs/Diagnostic Data: Laboratory Results Test 03/16/25 05:02 03/15/25 06:59 03/13/25 23:06 03/13/25 20:10 White Blood Count 3.5 10^3/uL (4.4-10.8) Red Blood Count 3.16 10^6/uL (4.0-5.20) Hemoglobin 9.1 g/dL (12.2-16.2) Hematocrit 27.6 % (36.0-46.0) Mean Corpuscular Volume 87.5 fL (80.0-100.0) Mean Corpuscular Hemoglobin 28.8 pg (28.0-32.0) Mean Corpuscular Hemoglobin Concent 32.9 g/dL (32.0-36.0) Red Cell Distribution Width 19.2 % (11.8-14.3) Platelet Count 275 10^3/uL (140-450) Mean Platelet Volume 7.3 fL (6.9-10.8) Neutrophils (%) (Auto) 62.2 % (37.0-80.0) Lymphocytes (%) (Auto) 24.0 % (10.0-50.0) Monocytes (%) (Auto) 11.2 % (0.0-12.0) Eosinophils (%) (Auto) 2.0 % (0.0-7.0) Basophils (%) (Auto) 0.6 % (0.0-2.0) Neutrophils # (Auto) 2.2 10 ^3/uL (1.6-8.6) Lymphocytes # (Auto) 0.8 10 ^3/uL (0.4-5.4) Monocytes # (Auto) 0.4 10 ^3/uL (0-1.3) Eosinophils # (Auto) 0.1 10 ^3/uL (0-0.8) Basophils # (Auto) 0 10 ^3/uL (0-0.2) Nucleated Red Blood Cells 0.9 % Prothrombin Time 11.8 sec (9.3-11.8) Prothrombin Time INR 1.13 (0.9-1.15) Activated Partial Thromboplast Time 30.3 SEC (24.5-34.5) Troponin I High Sensitivity 6 ng/L (</=34) Sodium Level 143 mmol/L (136-145) Potassium Level 3.5 mmol/L (3.5-5.1) Chloride Level 109 mmol/L (98-107) Carbon Dioxide Level 25 mmol/L (20-31) Anion Gap 9 (5-15) Blood Urea Nitrogen 12 mg/dL (9-23) Creatinine 0.97 mg/dL (0.550-1.02) Glomerular Filtration Rate Calc 62 mL/min (>90) BUN/Creatinine Ratio 12.4 (10.0-20.0) Serum Glucose 111 mg/dL (74-106) Calcium Level 9.7 mg/dL (8.7-10.4) Total Bilirubin 0.8 mg/dL (0.2-1.0) Aspartate Amino Transferase (AST) 41 U/L (13-40) Alanine Aminotransferase (ALT) 61 U/L (7-40) Alkaline Phosphatase 68 U/L (46-116) B-Type Natriuretic Peptide 42.44 pg/mL (0-100) Total Protein 6.5 g/dL (5.7-8.2) Albumin 4.3 g/dL (3.2-4.8) Other Laboratory Tests 03/16/25 05:02 03/13/25 20:10 Brief Hx & Hospital Course: 69-year-old female with a known history of diabetes mellitus type 2, chronic AFib currently on Coumadin, chronic asthma, known CAD status post PCI, chronic respiratory failure on home O2 initially presented to the hospital with shortness breath and tongue hematoma found to have supratherapeutic INR. Patient INR was corrected with vitamin K subQ. Patient's INR became subtherapeutic. Patient was recommended to be on Eliquis. Cardiology agree with the current plan of care. Eliquis has been resumed. Risks benefits and alternatives of Eliquis including life-threatening bleeding the disability explained to the patient in detail who understand verbalized understanding agreed to plan. Patient can follow up with the PCP outpatient to make sure sublingual hematoma has been resolved. Condition at Discharge: Stable Final Diagnosis/Problems List 69-year-old female with a known history of diabetes mellitus type 2, chronic AFib currently on Coumadin, chronic asthma, known CAD status post PCI, chronic respiratory failure on home O2 initially presented to the hospital with shortness breath and tongue hematoma found to have 1. Supratherapeutic INR, currently subtherapeutic 2. Sublingual hematoma 3. Chronic AFib 4. Diabetes mellitus type 2 5. CAD status post PCI 6. Chronic asthma 7. Chronic respiratory failure on home O2. Discharge Disposition: Home with Health Services SNF Discharge Will this Physician continue t: No Discharge Instruct/Medications Diet: Cardiac 2g Na,low cholest Activity: No Restrictions, As Tolerated Follow Up/Referral: Follow up with the PCP in 1-2 weeks Follow up with the Cardiology Dr. Jones in one two to be Medications: Eliquis as prescribed, discontinue warfarin New Medications: Apixaban Base (Eliquis) 5 Mg Tab 5 MG PO BIDPC for 30 Days, #60 TAB Continued Medications: Acetaminophen (Acetaminophen) 500 Mg Tab 500 MG PO Q4HP PRN, #20 TAB Amlodipine Besylate (Amlodipine Besylate) 2.5 Mg Tab 1 PO BID, #180 Atorvastatin Calcium (Atorvastatin Calcium) 20 Mg Tab 1 PO HS, #90 Cefdinir (Cefdinir) 300 Mg Cap 1 CAP PO BID, #10 CAP Duloxetine Hcl (Cymbalta) 60 Mg Cap 60 MG PO BID, CAP Furosemide (Furosemide) 20 Mg Tab 1 PO DAILY, #90 Insulin Glargine (Lantus) 100 Units/Ml Vial 55 UNITS SC DAILY, #30 Insulin Lispro (Human) (Humalog) 100 Mg/Ml Inj 8 BOTTLE SC AC, #30 Levothyroxine Sodium (Levothyroxine Sodium) 50 Mcg Tab 1 PO, #90 Losartan Potassium (Cozaar Tablet) 50 Mg Tb 1 PO BID, #180 Metformin Hydrochloride (Glumetza) 500 Mg Tab 1 PO BID, #180 Metoprolol Tartrate (Lopressor Tablet) 50 Mg Tb 100 MG GT BID, #60 Discontinued Medications: Warfarin Sodium (Coumadin) 5 Mg Tab 1 TAB PO DAILY for 7 Days, TAB 1 Refill Discharge Statement: "Patient was advised to return to the ER or call 911 if any headaches, dizziness, shortness of breath, chest pain, abdominal pain, bleeding, fevers, or worsening of medical condition. Patient was counseled about treatment plan, medications, possible side effects, patientverbalized understanding. All questions were answered to the best of my ability. This discharge took greater then 30 minutes in planning, reviewing documentation, counseling the patient, and discussing with other team members." ASSESSMENT ASSESSMENT Assessment 69-year-old female with a known history of diabetes mellitus type 2, chronic AFib currently on Coumadin, chronic asthma, known CAD status post PCI, chronic respiratory failure on home O2 initially presented to the hospital with shortness breath and tongue hematoma found to have 1. Supratherapeutic INR, currently subtherapeutic 2. Sublingual hematoma 3. Chronic AFib 4. Diabetes mellitus type 2 5. CAD status post PCI 6. Chronic asthma 7. Chronic respiratory failure on home O2. Date of Service: Mar 16, 2025 Billing Provider: MESERET MORGAN MD Common Visit Codes: NOT BILLABLE MESERET MORGAN MD Mar 16, 2025 14:47
== END 2025-03-16 15:08 | disposition home or self-care (01) | DRG 605 ==
LOC: ER 19:37 → OVERFLOW 03-14 04:07 → TELE-CENTR 03-14 18:39
PROVIDERS: ADMIT Nurse Practitioner Family; ATTEND Nurse Practitioner Family
DX: S00.532A Contusion of oral cavity, initial encounter (principal); D68.9 Coagulation defect, unspecified; I48.20 Chronic atrial fibrillation, unspecified; J96.10 Chronic respiratory failure, unspecified whether with hypoxia or hypercapnia; E11.9 Type 2 diabetes mellitus without complications; J45.909 Unspecified asthma, uncomplicated; I11.0 Hypertensive heart disease with heart failure; X58.XXXA Exposure to other specified factors, initial encounter; I50.9 Heart failure, unspecified; I25.10 Atherosclerotic heart disease of native coronary artery without angina pectoris; Z79.01 Long term (current) use of anticoagulants; Z79.84 Long term (current) use of oral hypoglycemic drugs; Z91.040 Latex allergy status; Z88.8 Allergy status to other drugs, medicaments and biological substances; Z91.09 Other allergy status, other than to drugs and biological substances; Z79.899 Other long term (current) drug therapy; Z79.2 Long term (current) use of antibiotics; Z79.1 Long term (current) use of non-steroidal anti-inflammatories (NSAID); Z79.4 Long term (current) use of insulin; Z82.49 Family history of ischemic heart disease and other diseases of the circulatory system; Z83.3 Family history of diabetes mellitus; Y93.89 Activity, other specified; Y92.89 Other specified places as the place of occurrence of the external cause; Y99.8 Other external cause status; Z98.61 Coronary angioplasty status; Z82.3 Family history of stroke; Z86.73 Personal history of transient ischemic attack (TIA), and cerebral infarction without residual deficits; Z90.710 Acquired absence of both cervix and uterus; Z99.81 Dependence on supplemental oxygen
CPT/HCPCS: 36415; 70490; 71045; 80053; 83880; 84484; 85025; 85610; 85730; G0378; J3430